=== PATIENT | female | born 1945 | race American Indian/Alaskan Native ===

== ENCOUNTER 2016-02-22 12:52 | Inpatient (IN) | payer MEDICARE ==
--- NOTE | 2016-02-22 14:03 | Emergency Department Report ---
Chief Complaint: Altered Mental Status Stated Complaint: CAN'T STAY AWAKE Time Seen by Provider: 02/22/16 13:57 - HPI History of Present Illness: Patient's son reports the patient with auditory and visual hallucinations with difficulty ambulating or standing. Patient was recently diagnosed with an UTI five days ago and unable to afford her prescriptive medications. - ROS Review of Systems: all other systems are unremarkable except for documentation in HPI - Exam Vital Signs: Vital Signs 02/22/16 13:11 Temperature 98.7 F Pulse Rate 102 H Respiratory 16 Rate Blood Pressure 137/79 O2 Sat by Pulse 96 Oximetry Physical Exam: Gen: obese, NAD Psych: flat affect, depressed MSE screening note: Focused history and physical exam performed. Due to findings the following was ordered: laboratory and radiology studies ordered ED Disposition for MSE Condition: Stable
--- NOTE | 2016-02-22 15:14 | XRay Report ---
CHEST 2 VIEWS: INDICATION: Altered mental status. COMPARISON: 02/18/2016 FINDINGS: Frontal and lateral chest radiographs demonstrate stable cardiomediastinal silhouette/mild cardiomegaly, mild aortic knob calcifications, left perihilar surgical clips and demineralized bones with thoracic spondylosis and advanced bilateral shoulder changes, including heterogeneous sclerosis and degenerative spurring of the right humeral head while absent left radial head noted from probable shoulder replacement hardware removal. Mild left base opacity/left lateral costophrenic angle blunting again noted, possibly pleural thickening or fluid. Lung markings again slightly prominent, more so on the right, possibly congestive versus chronic interstitial with somewhat similar appearance also noted on 09/10/2010 CXR. CONCLUSION: 1. Slight improved left basilar opacity. 2. Numerous other findings, as above, largely unchanged dating back to August 2010. Thank you for the opportunity to participate in this patient's care.
[2016-02-22 15:15] LABS: Basophils % (Auto) 0.4 % (0.0-1.8); Eosinophils % (Auto) 1.2 % (0.0-4.3); Hematocrit 39.4 % (30.3-42.9); Hemoglobin 12.5 gm/dl (10.1-14.3); Mean Corpuscular HGB Conc 32 % (30-34); Mean Corpuscular Hemoglobin 30 pg (28-32); Mean Corpuscular Volume 94 fl (79-97); Platelet Count 111 K/mm3 (140-440); Red Blood Count 4.17 M/mm3 (3.65-5.03); Red Cell Distribution Width 17.2 % (13.2-15.2); White Blood Count 4.3 K/mm3 (4.5-11.0)
[2016-02-22 15:26] LABS: INR 1.29 (0.87-1.13)
[2016-02-22 15:27] LABS: Partial Thromboplastin Time 29.7 Sec. (24.2-36.6)
[2016-02-22 15:36] LABS: Alanine Aminotransferase 7 units/L (7-56); Albumin 3.8 g/dL (3.9-5); Albumin/Globulin Ratio 1.3 %; Alkaline Phosphatase 112 units/L (35-129); BUN/Creatinine Ratio 17.14; Bilirubin,Total 1.2 mg/dL (0.1-1.2); Blood Urea Nitrogen 12 mg/dL (7-17); Carbon Dioxide 32 mmol/L (22-30); Chloride 102.7 mmol/L (98-107); Creatine Kinase 56 units/L (30-135); Glucose 164 mg/dL (65-100); Potassium 3.5 mmol/L (3.6-5.0); Sodium 147 mmol/L (137-145); Total Protein 6.8 g/dL (6.3-8.2)
[2016-02-22 15:44] LABS: Anion Gap 16 mmol/L
[2016-02-22 20:34] LABS: Bilirubin,Urine SM (Negative); Blood,Urine NEG (Negative); Ketones,Urine TR mg/dL (Negative); Leukocyte Esterase,Urine NEG (Negative); Mucus,Urine 1+ /HPF; Nitrite,Urine NEG (Negative); RBC,Urine < 1.0 /HPF (0.0-6.0)
--- NOTE | 2016-02-22 20:49 | Emergency Department Report ---
HPI - General Chief Complaint: Altered Mental Status Time Seen by Provider: 02/22/16 20:37 - HPI HPI: Room 3 The patient is a 70-year-old female presenting with a chief complaint of altered mental status. Patient was brought in by family for confusion. Family states patient has appeared confused for the last 5 days. Family states the patient has been hallucinating when asked him example family states the patient "sees her mother." The patient has not recognized her own daughter. Family states patient has been "talking out of her head." When asked the current year the patient states "2019." When asked what is bothering her the patient states "every little thing. Just irritation." Location: Mental state Duration: 5 days Quality: Confusion Severity: Moderate Modifying factors: [see above] Context: [see above] Mode of transportation: [not driving] ED Past Medical Hx - Past Medical History Previous Medical History?: Yes Hx Hypertension: Yes Hx Congestive Heart Failure: Yes Hx Diabetes: Yes Hx COPD: Yes - Surgical History Additional Surgical History: Patient states she has had abdominal surgery for a cancer whose origin she cannot recall - Family History Family history: no significant - Social History Smoking Status: Former Smoker (none times one year) Substance Use Type: None - Medications Home Medications: Home Medications Medication Instructions Recorded Confirmed Last Taken Type Aspirin [Adult Low Dose Aspirin EC] 81 mg PO DAILY 12/31/15 02/22/16 02/18/16 History Carvedilol [Coreg] 6.25 mg PO DAILY 12/31/15 02/22/16 02/18/16 History Dabigatran [Pradaxa] 150 mg PO BID 12/31/15 02/22/16 Unknown History Furosemide [Lasix] 20 mg PO QDAY 12/31/15 02/22/16 02/18/16 History ISOSORBIDE MONOnitrate [Imdur ER] 30 mg PO DAILY 12/31/15 02/22/16 02/18/16 History Lisinopril [Zestril] 20 mg PO QDAY 12/31/15 02/22/16 02/18/16 History Dabigatran [Pradaxa] 150 mg PO BID 02/18/16 02/22/16 02/18/16 History Digoxin [Lanoxin] 125 mcg PO QDAY 02/18/16 02/22/16 02/18/16 History Lisinopril [Zestril] 20 mg PO QDAY 02/18/16 02/22/16 Unknown History Metformin HCl [Fortamet ER] 1,000 mg PO QDAY 02/18/16 02/22/16 02/18/16 History Nitrofurantoin Esmeralda/M-Cryst 100 mg PO Q12HR #14 capsule 02/18/16 02/22/16 Unknown Rx [Macrobid CAP] Pantoprazole [Protonix] 40 mg PO QDAY 02/18/16 02/22/16 02/18/16 History Tiotropium [Spiriva] 18 mcg IH QDAY 02/18/16 02/22/16 02/18/16 History hydrALAZINE [Apresoline] 25 mg PO BID 02/18/16 02/22/16 02/18/16 History oxyCODONE /ACETAMINOPHEN [Percocet 1 tab PO Q6HR PRN #14 tablet 02/18/16 Unknown Rx 5/325] ED Review of Systems ROS: Stated complaint: CAN'T STAY AWAKE Other details as noted in HPI Comment: All other systems reviewed and negative Constitutional: denies: chills, fever Eyes: denies: eye pain, eye discharge, vision change ENT: denies: ear pain, throat pain Respiratory: denies: cough, shortness of breath, wheezing Cardiovascular: denies: chest pain, palpitations Endocrine: no symptoms reported Gastrointestinal: denies: abdominal pain, nausea, diarrhea Genitourinary: denies: urgency, dysuria, discharge Musculoskeletal: denies: back pain, joint swelling, arthralgia Skin: denies: rash, lesions Neurological: confusion Psychiatric: visual hallucinations Hematological/Lymphatic: denies: easy bleeding, easy bruising Physical Exam - Physical Exam Vital Signs: Vital Signs 02/22/16 02/22/16 02/22/16 13:11 19:25 19:26 Temperature 98.7 F Pulse Rate 102 H 121 H 111 H Respiratory 16 29 H 16 Rate Blood Pressure 137/79 O2 Sat by Pulse 96 83 L 91 Oximetry 02/22/16 02/22/16 02/22/16 19:28 19:30 19:32 Temperature Pulse Rate 108 H 100 H 103 H Respiratory 22 18 16 Rate Blood Pressure 167/101 183/93 183/93 O2 Sat by Pulse 93 98 99 Oximetry 1202/22/16 02/22/16 19:34 19:46 20:00 Temperature Pulse Rate 99 H 87 100 H Respiratory 17 21 15 Rate Blood Pressure 183/93 183/85 183/85 O2 Sat by Pulse 99 99 90 Oximetry 02/22/16 20:16 Temperature Pulse Rate 93 H Respiratory 19 Rate Blood Pressure 159/90 O2 Sat by Pulse 100 Oximetry Physical Exam: GENERAL: The patient is well-developed well-nourished female lying on stretcher not appearing to be in acute distress. [] HEENT: Normocephalic. Atraumatic. Extraocular motions are intact. Patient has moist mucous membranes. NECK: Supple. No meningitic signs are noted. Regular midline CHEST/LUNGS: Clear to auscultation. There is no respiratory distress noted. HEART/CARDIOVASCULAR: Regular. There is no tachycardia. There is no gallop rub or murmur. ABDOMEN: Abdomen is soft, nontender. Patient has normal bowel sounds. There is no abdominal distention. SKIN: There is no rash. There is no edema. There is no diaphoresis. NEURO: The patient is awake but not oriented to time. The patient is cooperative. The patient has no focal neurologic deficits. The patient has normal speech. Cranial nerves II through XII grossly intact, real estate coordinator equal bilaterally MUSCULOSKELETAL: There is no evidence of acute injury. ED Course Vital Signs 02/22/16 02/22/16 02/22/16 13:11 19:25 19:26 Temperature 98.7 F Pulse Rate 102 H 121 H 111 H Respiratory 16 29 H 16 Rate Blood Pressure 137/79 O2 Sat by Pulse 96 83 L 91 Oximetry 02/22/16 02/22/16 02/22/16 19:28 19:30 19:32 Temperature Pulse Rate 108 H 100 H 103 H Respiratory 22 18 16 Rate Blood Pressure 167/101 183/93 183/93 O2 Sat by Pulse 93 98 99 Oximetry 02/22/16 02/22/16 02/22/16 19:34 19:46 20:00 Temperature Pulse Rate 99 H 87 100 H Respiratory 17 21 15 Rate Blood Pressure 183/93 183/85 183/85 O2 Sat by Pulse 99 99 90 Oximetry 02/22/16 20:16 Temperature Pulse Rate 93 H Respiratory 19 Rate Blood Pressure 159/90 O2 Sat by Pulse 100 Oximetry ED Medical Decision Making - Lab Data Result diagrams: 02/22/16 14:52 02/22/16 14:52 Laboratory Tests 02/22/16 02/22/16 02/22/16 14:52 14:52 14:52 WBC 4.3 L RBC 4.17 Hgb 12.5 Hct 39.4 MCV 94 MCH 30 MCHC 32 RDW 17.2 H Plt Count 111 L Lymph % (Auto) 21.1 Esmeralda % (Auto) 10.9 H Eos % (Auto) 1.2 Baso % (Auto) 0.4 Lymph # 0.9 L Esmeralda # 0.5 Eos # 0.1 Baso # 0.0 Seg Neutrophils % 66.4 Seg Neutrophils # 2.9 PT 16.0 H INR 1.29 H APTT 29.7 Sodium 147 H Potassium 3.5 L Chloride 102.7 Carbon Dioxide 32 H Anion Gap 16 BUN 12 Creatinine 0.7 Estimated GFR > 60 BUN/Creatinine Ratio 17.14 Glucose 164 H Lactic Acid Calcium 9.0 Total Bilirubin 1.2 AST 15 ALT 7 Alkaline Phosphatase 112 Total Creatine Kinase 56 Troponin T < 0.010 Total Protein 6.8 Albumin 3.8 L Albumin/Globulin Ratio 1.3 Urine Color Urine Turbidity Urine pH Ur Specific [place] Urine Protein Urine Glucose (UA) Urine Ketones Urine Blood Urine Nitrite Urine Bilirubin Urine Ictotest Urine Urobilinogen Ur Leukocyte Esterase Urine WBC (Auto) Urine RBC (Auto) U Epithel Cells (Auto) Urine Mucus 02/22/16 02/22/16 14:52 20:00 WBC RBC Hgb Hct MCV MCH MCHC RDW Plt Count Lymph % (Auto) Esmeralda % (Auto) Eos % (Auto) Baso % (Auto) Lymph # Esmeralda # Eos # Baso # Seg Neutrophils % Seg Neutrophils # PT INR APTT Sodium Potassium Chloride Carbon Dioxide Anion Gap BUN Creatinine Estimated GFR BUN/Creatinine Ratio Glucose Lactic Acid 1.6 Calcium Total Bilirubin AST ALT Alkaline Phosphatase Total Creatine Kinase Troponin T Total Protein Albumin Albumin/Globulin Ratio Urine Color [place] Urine Turbidity Clear Urine pH 5.0 Ur Specific [place] 1.030 Urine Protein 100 mg/dl Urine Glucose (UA) Neg Urine Ketones Tr Urine Blood Neg Urine Nitrite Neg Urine Bilirubin Sm Urine Ictotest Positive Urine Urobilinogen 4.0 Ur Leukocyte Esterase Neg Urine WBC (Auto) 1.0 Urine RBC (Auto) < 1.0 U Epithel Cells (Auto) 8.0 Urine Mucus 1+ - EKG Data -: EKG Interpreted by Me Rate: tachycardia (107 bpm) - EKG Data When compared to previous EKG there are: no significant change - Radiology Data Radiology results: report reviewed (CT head), image reviewed (chest x-ray, CT head, CT Chest) interpreted by me: Chest [id number]. No pneumothorax CT head (read by radiologist)-there are chronic changes. There is no acute intracranial abnormality CT chest (read by radiologist)-the heart is enlarged. There is a small pericardial effusion. There is no pulmonary embolism. There is calcified plaque in the thoracic aorta. There is no aneurysm or dissection. There is mild pulmonary edema. There is no consolidation. There is a small right pleural effusion. There are no pneumothoraces. There is anasarca and ascites. Further evidence of heart failure. - Differential Diagnosis AMS, ICH, CVA Critical care attestation.: If time is entered above; I have spent that time in minutes in the direct care of this critically ill patient, excluding procedure time. ED Disposition Clinical Impression: Altered mental status, Hypoxia, CHF (congestive heart failure) Disposition: OP ADMITTED IP TO THIS HOSP Is pt being admited?: Yes Does the pt Need Aspirin: Yes Condition: Fair Referrals: PRIMARY CARE, [Primary Care Provider] - 3-5 Days Time of Disposition: 01:35 (hospitalist paged)
[2016-02-22 22:09] LABS: ISTAT Base Excess 10; ISTAT HCO3 35.3; ISTAT PCO2 58.1 (35-45); ISTAT PH 7.391 (7.35-7.45); ISTAT PO2 39 (80-105); ISTAT SO2 72; ISTAT TCO2 37
--- NOTE | 2016-02-22 22:36 | Cat Scan Report ---
FINAL REPORT PROCEDURE: CT HEAD/BRAIN WO CON TECHNIQUE: Computerized tomography of the head was performed without contrast material. HISTORY: altered mental status COMPARISON: No prior studies are available for comparison. FINDINGS: Skull and scalp: Normal. Paranasal sinuses: Normal. Ventricles and subarachnoid spaces: There is moderate central and cortical atrophy. There is no hydrocephalus.. Cerebrum: No evidence of hemorrhage, acute infarction or mass. There is an old lacunar infarct defect in the left thalamus. There is chronic periventricular deep white matter ischemic gliosis. Cerebellum and brainstem: No evidence of hemorrhage, acute infarction or mass. Vasculature: Normal. Comments: None. IMPRESSION: There are chronic changes as described. There is no acute intracranial abnormality.
[2016-02-22] MEDS ORDERED: NACL ONE (23:56)
--- NOTE | 2016-02-23 01:19 | Cat Scan Report ---
FINAL REPORT PROCEDURE: CT ANGIO CHEST TECHNIQUE: Computerized axial tomographic angiography of the chest and pulmonary arteries was performed after the IV injection of iodinated nonionic contrast. The image data was postprocessed using maximum intensity projection (MIP) and 2-dimensional multiplanar reformatted (MPR) techniques. The examination is specifically tailored to the evaluation of the pulmonary arteries per clinical request. HISTORY: Short of breath 786.09, chest pain 786.50, hypoxia, elevated d-dimer COMPARISON: No prior studies are available for comparison. FINDINGS: Heart and pericardium: The heart is enlarged. There is a small pericardial effusion.. Thoracic aorta: There is calcified plaque in the thoracic aorta. There is no aneurysm or dissection.. Pulmonary vasculature: Normal. No pulmonary emboli. Lymph nodes: No enlarged thoracic lymph nodes. Lungs: There is suboptimal lung volumes. The there is mild pulmonary edema. There is no consolidation.. Pleural space: There is a small right pleural effusion. There are no pneumothoraces.. Musculoskeletal structures: No significant abnormality. Upper abdominal structures: There is anasarca and ascites. Further evidence of heart failure.. IMPRESSION: The heart is enlarged. There is a small pericardial effusion.. There is no pulmonary embolism. There is calcified plaque in the thoracic aorta. There is no aneurysm or dissection.. is suboptimal lung volumes. The there is mild pulmonary edema. There is no consolidation.. There is a small right pleural effusion. There are no pneumothoraces.. There is anasarca and ascites. Further evidence of heart failure.. .
--- NOTE | 2016-02-23 01:30 | Admit Criteria Form ---
Admission Criteria Documentation: MENTAL STATUS CHANGE Clinical Indications for Inpatient Care (Place 'X' for any and all applicable criteria): Ongoing inpatient care may be needed for ANY ONE of the following(1)(2)(3)(5)(6) : [ X]I. Suspected serious etiology (eg, medical disorder, ANIMAL HUSBANDRY MANAGER event) of mental status change [ ]II. Danger to self or others not manageable at lower level of care [ ]III. Grave disability (eg, inability to perform self care necessary at lower level of care) [ ]IV. Agitation or inappropriate behavior interfering with care for primary condition (eg, attempting to discontinue lines or drains prematurely, unable to cooperate with respiratory care) [ ]V. Delirium [A] [D][E] as described by ANY ONE of the following(26): [ ]a) Delirium due to alcohol or sedative [F] withdrawal [ ]b) Delirium of uncertain etiology that has not responded to appropriate empiric treatment [ ]c) Delirium that prevents performance of a life-sustaining function (eg, feeding or hydrating oneself) [ ]. General contraindications and/or Inappropriate clinical situations for Observational Care in patients with Mental Status Change, when ANY ONE of the following is required: [ ]a) Prediction of prolongation of LOS based on ANY ONE of the following may be considered as a contraindication for observational care 2, 3, 4, 5, 6, 7, 8, 9, 10, 11 [ ]i) Age > 65 yrs. [ ]ii) Patient arriving by ambulance [ ]iii) Patient with high acuity [ ]iv) Patient requiring vital sign monitoring [ ]v) Patient on IV medication [ ]b) Systolic blood pressures 180mmHg 3,12 [ ]c) Patient with altered mental status including delirium and other alteration of consciousness, (3) [ ]d) Patient whose discharge disposition will be to a senior living home or rehabilitation home should not be managed in Emergency Department Observation Unit. CMS rule requires 3 days hospital stay before such placement.3,13 [ ]e) Patient with failure to thrive due to broad array of etiologies 3,16,17 [ ]f) Inability to ambulate 3,14 Extended stay beyond goal length of stay for the primary condition may be needed until ALL of the following are present(3)(5): [ ]a) Underlying medical etiology of mental status change is absent, or has been established and adequately treated [ ]b) Danger to self or others is absent or manageable at lower level of care. [ ]c) Behavior crisis management, including physical or chemical restraints, is not required or available at lower level of car [ ]d) Substance or alcohol withdrawal is absent or manageable at lower level of care. [ ]e) Behavioral symptoms (eg, agitation, somnolence, inappropriate behavior) are absent, or are manageable at lower level of care. The original [email or web address] content created by [facility] has been revised. The portions of the content which have been revised are identified through the use of italic text or in bold, and [facility] has neither reviewed nor approved the modified material. All other unmodified content is copyright [email or web address]. Please see references footnoted in the original [facility] edition 2016 Admission Criteria Met: Yes
[2016-02-23] MEDS ORDERED: CATAPRES PO ONE ×2 (01:31)
[2016-02-23] MEDS ORDERED: LASIX IV ONE (01:32)
[2016-02-23] MEDS ORDERED: ASPIRIN PO ONE (01:36)
[2016-02-23] MEDS ORDERED: ZOFRAN IV PRN (01:58)
[2016-02-23] MEDS ORDERED: TYLENOL PO PRN (01:58)
[2016-02-23] MEDS ORDERED: D50W (25GM) IV PRN (02:01)
--- NOTE | 2016-02-23 02:12 | History and Physical Report ---
History of Present Illness Date of examination: 02/23/16 Chief complaint: Can't stay awake History of present illness: Patient is 70-year-old woman with a history of type 2 diabetes mellitus, hypertension, COPD, CHF and morbid obesity BMI 54.9 who presents with altered mental status and can't stay awake within the last couple days there's reports of hallucination. History from the chart as patient is sleepy and not answering all questions. Past History Past Medical History: other (as HPI) Past Surgical History: Other ([facility]) Social history: other (has been answered) Family history: no significant family history Medications and Allergies Allergies Allergy/AdvReac Type Severity Reaction Status Date / Time Penicillins Allergy Unknown Verified 12/31/15 15:50 Home Medications Medication Instructions Recorded Confirmed Last Taken Type Aspirin [Adult Low Dose Aspirin EC] 81 mg PO DAILY 12/31/15 02/22/16 02/18/16 History Carvedilol [Coreg] 6.25 mg PO DAILY 12/31/15 02/22/16 02/18/16 History Dabigatran [Pradaxa] 150 mg PO BID 12/31/15 02/22/16 Unknown History Furosemide [Lasix] 20 mg PO QDAY 12/31/15 02/22/16 02/18/16 History ISOSORBIDE MONOnitrate [Imdur ER] 30 mg PO DAILY 12/31/15 02/22/16 02/18/16 History Lisinopril [Zestril] 20 mg PO QDAY 12/31/15 02/22/16 02/18/16 History Dabigatran [Pradaxa] 150 mg PO BID 02/18/16 02/22/16 02/18/16 History Digoxin [Lanoxin] 125 mcg PO QDAY 02/18/16 02/22/16 02/18/16 History Lisinopril [Zestril] 20 mg PO QDAY 02/18/16 02/22/16 Unknown History Metformin HCl [Fortamet ER] 1,000 mg PO QDAY 02/18/16 02/22/16 02/18/16 History Nitrofurantoin [place]/M-Cryst 100 mg PO Q12HR #14 capsule 02/18/16 02/22/16 Unknown Rx [Macrobid CAP] Pantoprazole [Protonix] 40 mg PO QDAY 02/18/16 02/22/16 02/18/16 History Tiotropium [Spiriva] 18 mcg IH QDAY 02/18/16 02/22/16 02/18/16 History hydrALAZINE [Apresoline] 25 mg PO BID 02/18/16 02/22/16 02/18/16 History oxyCODONE /ACETAMINOPHEN [Percocet 1 tab PO Q6HR PRN #14 tablet 02/18/16 Unknown Rx 5/325] Active Meds: Active Medications Acetaminophen (Tylenol) 650 mg PO Q6H PRN PRN Reason: Non Cardiac Pain or Temp>100.5 Aspirin (Halfprin Ec) 81 mg PO DAILY [facility] Carvedilol (Coreg) 6.25 mg PO DAILY [facility] Dabigatran (Pradaxa) 150 mg PO BID [facility] Dextrose (D50w (25gm)) 50 ml IV PRN PRN PRN Reason: Hypoglycemia Digoxin (Lanoxin) 0.125 mg PO QDAY [facility] Furosemide (Lasix) 20 mg IV 0600,1800 [facility] Hydralazine HCl (Apresoline) 25 mg PO BID [facility] Hydralazine HCl (Apresoline) 10 mg IV Q4HR PRN PRN Reason: Blood Pressure Levofloxacin/Dextrose (Levaquin 500mg/100ml) 100 mls @ 100 mls/hr IV Q24HR JUSTINO PRN Reason: Protocol Insulin Aspart (Novolog) 0 units SUB-Q ACHS JUSTINO PRN Reason: Protocol Lisinopril (Zestril) 20 mg PO QDAY [facility] Miscellaneous Medication (Metformin Hcl [Fortamet Er]) 1,000 mg PO QDAY [facility] Ondansetron HCl (Zofran) 4 mg IV Q4H PRN PRN Reason: Nausea And Vomiting Oxycodone/Acetaminophen (Percocet 5/325) 1 tab PO Q6HR PRN PRN Reason: Pain Pantoprazole Sodium (Protonix) 40 mg PO QDAY [facility] Potassium Chloride (K-Dur) 40 meq PO ONCE ONE Stop: 02/23/16 02:01 Tiotropium [place] (Spiriva) puff IH QDAY [facility] Review of Systems ROS unobtainable: due to mental status Exam - Physical Exam Narrative exam: GEN: WDWN, morbidly obesity BMI 55, NAD, sleepy but easily aroused, ORIENTATED 1 HEENT: NCAT, PERRL, EOMI, OP CLEAR NECK: SUPPLE, NO THYROMEGALY, + JVD, NO LAD CVS: Irregularly irregular, NORMAL S1S2 LUNGS/CHEST: Bibasilar crackles, NORMAL CHEST EXPANSION B, GOOD AIR ENTRY B ABD: SOFT, NTND, GBS, NO REBOUND OR GUARDING EXT/SKIN: leg SIGNIFICANT EDEMA MSK: Spontaneous movement X 4 EXTREMITIES NEURO: CN 2-12 GROSSLY INTACT, doesn't follow commands PSY: CALM - Constitutional Vitals: Temp Pulse Resp BP Pulse Ox 98.7 F 98 H 17 213/124 99 02/22/16 13:11 02/23/16 01:41 02/23/16 01:30 02/23/16 01:41 02/23/16 00:46 Results - Labs CBC & Chem 7: 02/22/16 14:52 02/22/16 14:52 Labs: Abnormal lab results 02/22/16 02/22/16 02/22/16 Range/Units 14:52 14:52 14:52 WBC 4.3 L (4.5-11.0) K/mm3 RDW 17.2 H (13.2-15.2) % Plt Count 111 L (140-440) K/mm3 [place] % (Auto) 10.9 H (0.0-7.3) % Lymph # 0.9 L (1.2-5.4) K/mm3 PT 16.0 H (12.2-14.9) Sec. INR 1.29 H (0.87-1.13) D-Dimer (0-234) ng/mlDDU POC ABG pCO2 (35-45) POC ABG pO2 (80-105) Sodium 147 H (137-145) mmol/L Potassium 3.5 L (3.6-5.0) mmol/L Carbon Dioxide 32 H (22-30) mmol/L Glucose 164 H (65-100) mg/dL Albumin 3.8 L (3.9-5) g/dL 02/22/16 02/22/16 Range/Units 15:00 22:01 WBC (4.5-11.0) K/mm3 RDW (13.2-15.2) % Plt Count (140-440) K/mm3 [place] % (Auto) (0.0-7.3) % Lymph # (1.2-5.4) K/mm3 PT (12.2-14.9) Sec. INR (0.87-1.13) D-Dimer 445.96 H (0-234) ng/mlDDU POC ABG pCO2 58.1 H (35-45) POC ABG pO2 39 L (80-105) Sodium (137-145) mmol/L Potassium (3.6-5.0) mmol/L Carbon Dioxide (22-30) mmol/L Glucose (65-100) mg/dL Albumin (3.9-5) g/dL - Imaging and Cardiology EKG: image reviewed CT scan - chest: report reviewed CT Scan - head: report reviewed Assessment and Plan Patient is 70-year-old woman with a history of type 2 diabetes mellitus, atrial fibrillation on pradaxa, hypertension, COPD, CHF and morbid obesity BMI 55 who presents with altered mental status and can't stay awake within the last couple days there's reports of hallucination. History from the chart as patient is sleepy and not answering all questions. CTA of the chest 02/23/2016: The heart is enlarged. A small pericardial effusion. There is no pulmonary embolism. This plaque in the thoracic aorta. There is no aneurysm dissection. There is suboptimal lung volumes. There is mild pulmonary edema. There is no consolidation. There is a small right pleural effusion, no pneumothorax. There is anasarca and ascites, further evidence of heart failure. Pulse oximetry was found to be 83% on room air. Patient was seen on and diagnosed with UTI. 1. Acute hypoxic respiratory failure: Treatment oxygen and heart failure 2. Acute on chronic suspected diastolic heart failure: Treat with IV Lasix, no prior echocardiogram, will order 3. Accelerated hypertension: IV when necessary hydralazine 4. Hypokalemia: Replace and recheck in a.m. 5. Atrial fibrillation: Continue home medication 6. Type 2 diabetes mellitus: Add sliding scale 7. Sirs with suspected UTI with sepsis poorly treated with Macrobid: Check urine culture, treat with IV Levaquin, patient allergic to penicillin 8. DVT prophylaxis: SCDs and Pradaxa Full code Disposition: Inpatient care The high probability of a clinically significant, sudden or life threatening deterioration of the [neurologic,cardiac] system(s) required my full and direct attention, intervention and personal management. The aggregate critical care time was [ 34 ] minutes. This time is in addition to time spent performing reported procedures but includes the following: [x] Data Review and interpretation [x] Patient assessment and monitoring of vital signs [x] Documentation [x] Medication orders and management
[2016-02-23] MEDS ORDERED: K-DUR PO ONE (03:00)
[2016-02-23] MEDS: LASIX IV SCH ×2 (05:17→18:10)
[2016-02-23 07:54] LABS: Creatine Kinase MB 1.3 ng/mL (0.0-4.0)
[2016-02-23 07:58] LABS: Creatine Kinase 53 units/L (30-135)
[2016-02-23] MEDS ORDERED: LASIX PO SCH (10:00)
[2016-02-23] MEDS: SPIRIVA IH SCH (10:57)
[2016-02-23] MEDS: HALFPRIN EC PO SCH (12:56)
[2016-02-23] MEDS: APRESOLINE PO SCH ×2 (12:56→21:46)
[2016-02-23] MEDS: PROTONIX PO SCH (12:56)
[2016-02-23] MEDS: ZESTRIL PO SCH (12:56)
[2016-02-23] MEDS: COREG PO SCH (12:57)
[2016-02-23] MEDS: PRADAXA PO SCH ×2 (12:59→21:46)
[2016-02-23] MEDS: NOVOLOG SUB-Q SCH ×2 (13:00→22:57)
[2016-02-23] MEDS: LEVAQUIN 500MG/100ML 100 ML IV SCH (13:02)
[2016-02-23 13:31] LABS: Creatine Kinase MB 1.3 ng/mL (0.0-4.0)
[2016-02-23 13:32] LABS: Creatine Kinase 52 units/L (30-135)
--- NOTE | 2016-02-23 13:46 | Progress Note ---
Assessment and Plan Assessment and plan: Acute hypoxic respiratory failure: * Treatment with supplemental oxygen, nebulizer breathing treatment * Treat underlying cause diastolic heart failure Acute on chronic suspected diastolic heart failure: * Treat with IV Lasix, 2-D echo showed preserved ejection fraction and diastolic dysfunction * We'll consult cardiology Accelerated hypertension: * IV when necessary hydralazine * Continue current meds and a chest dictations as needed Hypokalemia: * Replaced and continue to monitor Atrial fibrillation: * Continue home medication and anticoagulation Type 2 diabetes mellitus: * Continue ADA diet and sliding scale Sirs with suspected UTI with sepsis poorly treated with Macrobid: * Follow urine culture, treat with IV Levaquin, patient allergic to penicillin DVT prophylaxis: * SCDs and Pradaxa History Interval history: Patient seen and examined. Medical records and medication list reviewed. No acute event overnight noted by the RN. Patient continued to complain of difficulty breathing with minimal exertion. Patient is tolerating diet. Discussed plan of care at bedside with patient. Hospitalist Physical - Physical exam Narrative exam: GEN: WDWN, morbidly obesity BMI 55, NAD, sleepy but easily aroused, ORIENTATED 1 HEENT: NCAT, PERRL, EOMI, OP CLEAR NECK: SUPPLE, NO THYROMEGALY, + JVD, NO LAD CVS: Irregularly irregular, NORMAL S1S2 LUNGS/CHEST: Bibasilar crackles, NORMAL CHEST EXPANSION B, GOOD AIR ENTRY B ABD: SOFT, NTND, GBS, NO REBOUND OR GUARDING EXT/SKIN: leg SIGNIFICANT EDEMA MSK: Spontaneous movement X 4 EXTREMITIES NEURO: CN 2-12 GROSSLY INTACT, doesn't follow commands PSY: CALM - Constitutional Vitals: Temp Pulse Resp BP Pulse Ox 98.4 F 82 20 191/52 98 02/23/16 07:40 02/23/16 12:57 02/23/16 07:40 02/23/16 12:57 02/23/16 07:40 Results - Labs CBC & Chem 7: 02/22/16 14:52 02/22/16 14:52 Labs: Laboratory Last Values WBC 4.3 K/mm3 (4.5-11.0) L 02/22/16 14:52 RBC 4.17 M/mm3 (3.65-5.03) 02/22/16 14:52 Hgb 12.5 gm/dl (10.1-14.3) 02/22/16 14:52 Hct 39.4 % (30.3-42.9) 02/22/16 14:52 MCV 94 fl (79-97) 02/22/16 14:52 MCH 30 pg (28-32) 02/22/16 14:52 MCHC 32 % (30-34) 02/22/16 14:52 RDW 17.2 % (13.2-15.2) H 02/22/16 14:52 Plt Count 111 K/mm3 (140-440) L 02/22/16 14:52 Lymph % (Auto) 21.1 % (13.4-35.0) 02/22/16 14:52 [place] % (Auto) 10.9 % (0.0-7.3) H 02/22/16 14:52 Eos % (Auto) 1.2 % (0.0-4.3) 02/22/16 14:52 Baso % (Auto) 0.4 % (0.0-1.8) 02/22/16 14:52 Lymph # 0.9 K/mm3 (1.2-5.4) L 02/22/16 14:52 [place] # 0.5 K/mm3 (0.0-0.8) 02/22/16 14:52 Eos # 0.1 K/mm3 (0.0-0.4) 02/22/16 14:52 Baso # 0.0 K/mm3 (0.0-0.1) 02/22/16 14:52 Seg Neutrophils % 66.4 % (40.0-70.0) 02/22/16 14:52 Seg Neutrophils # 2.9 K/mm3 (1.8-7.7) 02/22/16 14:52 PT 16.0 Sec. (12.2-14.9) H 02/22/16 14:52 INR 1.29 (0.87-1.13) H 02/22/16 14:52 APTT 29.7 Sec. (24.2-36.6) 02/22/16 14:52 D-Dimer 445.96 ng/mlDDU (0-234) H 02/22/16 15:00 POC ABG pH 7.391 (7.35-7.45) 02/22/16 22:01 POC ABG pCO2 58.1 (35-45) H 02/22/16 22:01 POC ABG pO2 39 (80-105) L 02/22/16 22:01 POC ABG HCO3 35.3 02/22/16 22:01 POC ABG Total CO2 37 02/22/16 22:01 POC ABG O2 Sat 72 02/22/16 22:01 POC ABG Base Excess 10 02/22/16 22:01 FiO2 28 % 02/22/16 22:01 Sodium 147 mmol/L (137-145) H 02/22/16 14:52 Potassium 3.5 mmol/L (3.6-5.0) L 02/22/16 14:52 Chloride 102.7 mmol/L (98-107) 02/22/16 14:52 Carbon Dioxide 32 mmol/L (22-30) H 02/22/16 14:52 Anion Gap 16 mmol/L 02/22/16 14:52 BUN 12 mg/dL (7-17) 02/22/16 14:52 Creatinine 0.7 mg/dL (0.7-1.2) 02/22/16 14:52 Estimated GFR > 60 ml/min 02/22/16 14:52 BUN/Creatinine Ratio 17.14 % 02/22/16 14:52 Glucose 164 mg/dL (65-100) H 02/22/16 14:52 Lactic Acid 1.6 mmol/L (0.7-2.0) 02/22/16 14:52 Calcium 9.0 mg/dL (8.4-10.2) 02/22/16 14:52 Total Bilirubin 1.2 mg/dL (0.1-1.2) 02/22/16 14:52 AST 15 units/L (5-40) 02/22/16 14:52 ALT 7 units/L (7-56) 02/22/16 14:52 Alkaline Phosphatase 112 units/L (35-129) 02/22/16 14:52 Total Creatine Kinase 52 units/L (30-135) 02/23/16 12:49 CK-MB (CK-2) 1.3 ng/mL (0.0-4.0) 02/23/16 12:49 CK-MB (CK-2) Rel Index 2.5 (0-4) 02/23/16 12:49 Troponin T < 0.010 ng/mL (0.00-0.029) 02/23/16 12:49 Total Protein 6.8 g/dL (6.3-8.2) 02/22/16 14:52 Albumin 3.8 g/dL (3.9-5) L 02/22/16 14:52 Albumin/Globulin Ratio 1.3 % 02/22/16 14:52 Urine Color [place] (Yellow) 02/22/16 20:00 Urine Turbidity Clear (Clear) 02/22/16 20:00 Urine pH 5.0 (5.0-7.0) 02/22/16 20:00 Ur Specific [place] 1.030 (1.003-1.030) 02/22/16 20:00 Urine Protein 100 mg/dl mg/dL (Negative) 02/22/16 20:00 Urine Glucose (UA) Neg mg/dL (Negative) 02/22/16 20:00 Urine Ketones Tr mg/dL (Negative) 02/22/16 20:00 Urine Blood Neg (Negative) 02/22/16 20:00 Urine Nitrite Neg (Negative) 02/22/16 20:00 Urine Bilirubin Sm (Negative) 02/22/16 20:00 Urine Ictotest Positive (Negative) 02/22/16 20:00 Urine Urobilinogen 4.0 mg/dL (<2.0) 02/22/16 20:00 Ur Leukocyte Esterase Neg (Negative) 02/22/16 20:00 Urine WBC (Auto) 1.0 /HPF (0.0-6.0) 02/22/16 20:00 Urine RBC (Auto) < 1.0 /HPF (0.0-6.0) 02/22/16 20:00 U Epithel Cells (Auto) 8.0 /HPF (0-13.0) 02/22/16 20:00 Urine Mucus 1+ /HPF 02/22/16 20:00
--- NOTE | 2016-02-23 15:29 | Echocardiography Report ---
Transthoracic Echocardiogram Indication: CHF BP: 164/59 Conclusions *Moderate concentric left ventricular hypertrophy is observed. *The left ventricular chamber size is normal. *The estimated ejection fraction is 55-60%. *The left ventricular diastolic filling pattern is restrictive. *The left atrium is mildly dilated. *TAPSE is low at 1.17 suggesting (R) ventricular dysfunction. *The aortic valve leaflets are mildly thickened. *The right atrium is moderately dilated. *The mitral valve leaflets are mildly thickened. *There is mild mitral regurgitation. *There is moderate tricuspid regurgitation. *The right ventricular systolic pressure is calculated at 86 mmHg. *There is evidence of severe pulmonary hypertension. *There is a minimial pericardial effusion. *The inferior vena cava is dilated. *There is no change in the dimension of the inferior vena cava with respiration consistent with markedly increased right atrial pressure. Findings Left Ventricle: The left ventricular chamber size is normal. Moderate concentric left ventricular hypertrophy is observed. Global left ventricular wall motion and contractility are within normal limits. Global left ventricular systolic function is normal. The estimated ejection fraction is 55-60%. Abnormal left ventricular diastolic function is observed. The left ventricular diastolic filling pattern is restrictive. Left Atrium: The left atrium is mildly dilated. Right Ventricle: The right ventricular cavity size is normal. The right ventricular global systolic function is normal. Right Atrium: The right atrium is moderately dilated. The interatrial septum appears normal. Aortic Valve: The aortic valve leaflets are mildly thickened. Mild aortic leaflet calcification is visualized. There is no evidence of aortic regurgitation. There is no evidence of aortic stenosis. Mitral Valve: The mitral valve leaflets appear normal. The mitral valve leaflets are mildly thickened. Mild mitral leaflet calcification is visualized. There is mild mitral regurgitation. There is no evidence of mitral stenosis. Tricuspid Valve: The tricuspid valve leaflets are normal. There is moderate tricuspid regurgitation. The right ventricular systolic pressure is calculated at 86 mmHg. There is evidence of severe pulmonary hypertension. There is no tricuspid stenosis. Pulmonic Valve: The pulmonic valve appears normal. There is trace pulmonic regurgitation. There is no pulmonic stenosis. Pericardium: There is a minimial pericardial effusion. Aorta: There is no dilatation of the ascending aorta. There is no dilatation of the aortic root. Venous: The inferior vena cava is dilated. There is no change in the dimension of the inferior vena cava with respiration consistent with markedly increased right atrial pressure. Measurements Chambers MM Name Value Normal Range Ao root diameter (MM) 2.5 cm (2 - 3.7) LA dimension (AP) MM 4.3 cm (1.9 - 4) LA:Ao ratio (MM) 1.72 ratio - AV cusp separation (MM) 1.4 cm (1.5 - 2.6) Chambers 2D Name Value Normal Range RVIDd (AP) 2D 3.54 cm (0.9 - 2.6) IVSd (2D) 1.62 cm (0.6 - 1.1) LVPWd (2D) 1.62 cm (0.6 - 1.1) IVS:LVPW ratio (2D) 1 ratio - LVIDd (2D) 4.39 cm (3.7 - 5.6) LVIDs (2D) 3.17 cm (2 - 3.8) LV FS (Teichholz) (2D) 27.8 % - LV FS (cube) (2D) 27.8 % - EF Teichholz (2D) 54.1 % - LA dimension (AP) 2D 4.8 cm (1.9 - 4) Volumes/Mass Name Value Normal Range LA ESV SP 4CH (MOD) 61 ml - LA ESV SP 2CH (MOD) 83 ml - LA ESV BP (MOD) 72 ml - LA ESV BP (MOD) index 31.9 ml/m2 - LV EDV SP 4CH (MOD) 52 ml - Diastolic/Systolic Function Name Value Normal Range MV E-wave Vmax 0.75 m/sec - MV deceleration time 169 msec - LV septal e' Vmax 0.08 m/sec - LV lateral e' Vmax 0.1 m/sec - LV E:e' septal ratio 9 ratio - LV E:e' lateral ratio 7.6 ratio - Aortic Valve Name Value Normal Range AV VTI 31.6 cm - AV mean gradient 6 mmHg - LVOT diameter 2 cm - LVOT VTI 15.3 cm - LVOT mean gradient 2 mmHg - SV LVOT 48 ml - TODD (continuity VTI) 1.52 cm2 - Mitral Valve Name Value Normal Range MV PHT 51 msec - MR Vmax 4.07 m/sec - MVA (PHT) 4.31 cm2 - Tricuspid Valve Name Value Normal Range TR Vmax 4.22 m/sec - TR peak gradient 71 mmHg - RAP 15 mmHg - RVSP 86 mmHg - Pulmonic Valve/Qp:Qs Name Value Normal Range PV Vmax 0.94 m/sec - PV peak gradient 4 mmHg - IL end-diastolic Vmax 1.79 m/sec - PV acceleration time 109 msec -
[2016-02-23] MEDS: LANOXIN PO SCH (18:08)
[2016-02-23] MEDS: GLUCOPHAGE XR PO SCH (18:13)
[2016-02-23 18:21] LABS: Creatine Kinase MB 1.1 ng/mL (0.0-4.0)
[2016-02-23] MEDS ORDERED: HEPARIN SUB-Q SCH (22:00)
[2016-02-24] MEDS: LASIX IV SCH ×2 (06:07→17:18)
[2016-02-24] MEDS: NOVOLOG SUB-Q SCH ×5 (07:48→22:03)
[2016-02-24] MEDS: PRADAXA PO SCH ×2 (10:55→22:02)
[2016-02-24] MEDS: ZESTRIL PO SCH (10:55)
[2016-02-24] MEDS: GLUCOPHAGE XR PO SCH (10:55)
[2016-02-24] MEDS: COREG PO SCH (10:55)
[2016-02-24] MEDS: HALFPRIN EC PO SCH (10:55)
[2016-02-24] MEDS: APRESOLINE PO SCH ×2 (10:55→22:02)
[2016-02-24] MEDS: LEVAQUIN 500MG/100ML 100 ML IV SCH (10:56)
[2016-02-24] MEDS: PROTONIX PO SCH (10:56)
[2016-02-24] MEDS: SPIRIVA IH SCH (10:59)
[2016-02-24 11:43] LABS: Anion Gap 15 mmol/L; BUN/Creatinine Ratio 11.42; Blood Urea Nitrogen 8 mg/dL (7-17); Calcium 8.7 mg/dL (8.4-10.2); Carbon Dioxide 36 mmol/L (22-30); Chloride 97.5 mmol/L (98-107); Glucose 172 mg/dL (65-100); Potassium 3.2 mmol/L (3.6-5.0); Sodium 145 mmol/L (137-145)
--- NOTE | 2016-02-24 15:07 | Progress Note ---
Assessment and Plan Assessment and plan: Acute hypoxic respiratory failure: * Treatment with supplemental oxygen, nebulizer breathing treatment * Treat underlying cause diastolic heart failure Acute on chronic diastolic heart failure: * Treat with IV Lasix, 2-D echo showed preserved ejection fraction and diastolic dysfunction * Follow cardiology recommendation Accelerated hypertension: * IV when necessary hydralazine * Continue current meds and a chest dictations as needed Hypokalemia: * Replace and continue to monitor Atrial fibrillation: * Continue home medication and anticoagulation Type 2 diabetes mellitus: * Continue ADA diet and sliding scale Sirs with suspected UTI with sepsis poorly treated with Macrobid: * Follow urine culture, treat with IV Levaquin, patient allergic to penicillin DVT prophylaxis: * SCDs and Pradaxa Physical debility * PTOT eval History Interval history: Patient seen and examined. Medical records and medication list reviewed. No acute event overnight noted by the RN. Patient continued to complain of difficulty breathing with minimal exertion. Patient is tolerating diet. Discussed plan of care at bedside with patient. Hospitalist Physical - Physical exam Narrative exam: GEN: WDWN, morbidly obesity BMI 55, NAD, sleepy but easily aroused, ORIENTATED 1 HEENT: NCAT, PERRL, EOMI, OP CLEAR NECK: SUPPLE, NO THYROMEGALY, + JVD, NO LAD CVS: Irregularly irregular, NORMAL S1S2 LUNGS/CHEST: Bibasilar crackles, NORMAL CHEST EXPANSION B, GOOD AIR ENTRY B ABD: SOFT, NTND, GBS, NO REBOUND OR GUARDING EXT/SKIN: leg SIGNIFICANT EDEMA MSK: Spontaneous movement X 4 EXTREMITIES NEURO: CN 2-12 GROSSLY INTACT, doesn't follow commands PSY: CALM - Constitutional Vitals: Temp Pulse Resp BP Pulse Ox 98.1 F 88 20 149/69 96 02/24/16 07:51 02/24/16 12:55 02/24/16 11:02 02/24/16 07:51 02/24/16 10:57 Results - Labs CBC & Chem 7: 02/22/16 14:52 02/24/16 10:45 Labs: Laboratory Last Values WBC 4.3 K/mm3 (4.5-11.0) L 02/22/16 14:52 RBC 4.17 M/mm3 (3.65-5.03) 02/22/16 14:52 Hgb 12.5 gm/dl (10.1-14.3) 02/22/16 14:52 Hct 39.4 % (30.3-42.9) 02/22/16 14:52 MCV 94 fl (79-97) 02/22/16 14:52 MCH 30 pg (28-32) 02/22/16 14:52 MCHC 32 % (30-34) 02/22/16 14:52 RDW 17.2 % (13.2-15.2) H 02/22/16 14:52 Plt Count 111 K/mm3 (140-440) L 02/22/16 14:52 Lymph % (Auto) 21.1 % (13.4-35.0) 02/22/16 14:52 [place] % (Auto) 10.9 % (0.0-7.3) H 02/22/16 14:52 Eos % (Auto) 1.2 % (0.0-4.3) 02/22/16 14:52 Baso % (Auto) 0.4 % (0.0-1.8) 02/22/16 14:52 Lymph # 0.9 K/mm3 (1.2-5.4) L 02/22/16 14:52 [place] # 0.5 K/mm3 (0.0-0.8) 02/22/16 14:52 Eos # 0.1 K/mm3 (0.0-0.4) 02/22/16 14:52 Baso # 0.0 K/mm3 (0.0-0.1) 02/22/16 14:52 Seg Neutrophils % 66.4 % (40.0-70.0) 02/22/16 14:52 Seg Neutrophils # 2.9 K/mm3 (1.8-7.7) 02/22/16 14:52 PT 16.0 Sec. (12.2-14.9) H 02/22/16 14:52 INR 1.29 (0.87-1.13) H 02/22/16 14:52 APTT 29.7 Sec. (24.2-36.6) 02/22/16 14:52 D-Dimer 445.96 ng/mlDDU (0-234) H 02/22/16 15:00 POC ABG pH 7.391 (7.35-7.45) 02/22/16 22:01 POC ABG pCO2 58.1 (35-45) H 02/22/16 22:01 POC ABG pO2 39 (80-105) L 02/22/16 22:01 POC ABG HCO3 35.3 02/22/16 22:01 POC ABG Total CO2 37 02/22/16 22:01 POC ABG O2 Sat 72 02/22/16 22:01 POC ABG Base Excess 10 02/22/16 22:01 FiO2 28 % 02/22/16 22:01 Sodium 145 mmol/L (137-145) 02/24/16 10:45 Potassium 3.2 mmol/L (3.6-5.0) L 02/24/16 10:45 Chloride 97.5 mmol/L (98-107) L 02/24/16 10:45 Carbon Dioxide 36 mmol/L (22-30) H 02/24/16 10:45 Anion Gap 15 mmol/L 02/24/16 10:45 BUN 8 mg/dL (7-17) 02/24/16 10:45 Creatinine 0.7 mg/dL (0.7-1.2) 02/24/16 10:45 Estimated GFR > 60 ml/min 02/24/16 10:45 BUN/Creatinine Ratio 11.42 % 02/24/16 10:45 Glucose 172 mg/dL (65-100) H 02/24/16 10:45 POC Glucose 170 (70-105) H 02/24/16 11:43 Lactic Acid 1.6 mmol/L (0.7-2.0) 02/22/16 14:52 Calcium 8.7 mg/dL (8.4-10.2) 02/24/16 10:45 Total Bilirubin 1.2 mg/dL (0.1-1.2) 02/22/16 14:52 AST 15 units/L (5-40) 02/22/16 14:52 ALT 7 units/L (7-56) 02/22/16 14:52 Alkaline Phosphatase 112 units/L (35-129) 02/22/16 14:52 Total Creatine Kinase 39 units/L (30-135) 02/24/16 00:24 CK-MB (CK-2) 1.0 ng/mL (0.0-4.0) 02/24/16 00:24 CK-MB (CK-2) Rel Index 2.5 (0-4) 02/24/16 00:24 Troponin T < 0.010 ng/mL (0.00-0.029) 02/23/16 12:49 Total Protein 6.8 g/dL (6.3-8.2) 02/22/16 14:52 Albumin 3.8 g/dL (3.9-5) L 02/22/16 14:52 Albumin/Globulin Ratio 1.3 % 02/22/16 14:52 TSH 0.117 mlU/mL (0.270-4.200) L 02/24/16 05:21 Urine Color [place] (Yellow) 02/22/16 20:00 Urine Turbidity Clear (Clear) 02/22/16 20:00 Urine pH 5.0 (5.0-7.0) 02/22/16 20:00 Ur Specific [place] 1.030 (1.003-1.030) 02/22/16 20:00 Urine Protein 100 mg/dl mg/dL (Negative) 02/22/16 20:00 Urine Glucose (UA) Neg mg/dL (Negative) 02/22/16 20:00 Urine Ketones Tr mg/dL (Negative) 02/22/16 20:00 Urine Blood Neg (Negative) 02/22/16 20:00 Urine Nitrite Neg (Negative) 02/22/16 20:00 Urine Bilirubin Sm (Negative) 02/22/16 20:00 Urine Ictotest Positive (Negative) 02/22/16 20:00 Urine Urobilinogen 4.0 mg/dL (<2.0) 02/22/16 20:00 Ur Leukocyte Esterase Neg (Negative) 02/22/16 20:00 Urine WBC (Auto) 1.0 /HPF (0.0-6.0) 02/22/16 20:00 Urine RBC (Auto) < 1.0 /HPF (0.0-6.0) 02/22/16 20:00 U Epithel Cells (Auto) 8.0 /HPF (0-13.0) 02/22/16 20:00 Urine Mucus 1+ /HPF 02/22/16 20:00
[2016-02-24] MEDS ORDERED: K-DUR PO ONE (16:00)
[2016-02-24] MEDS: LANOXIN PO SCH (17:18)
[2016-02-25] MEDS: LASIX IV SCH ×2 (05:27→17:46)
[2016-02-25] MEDS: SPIRIVA IH SCH ×2 (07:47→10:00)
[2016-02-25] MEDS: NOVOLOG SUB-Q SCH ×4 (08:01→22:54)
[2016-02-25 08:10] LABS: Anion Gap 15 mmol/L; BUN/Creatinine Ratio 11.42; Blood Urea Nitrogen 8 mg/dL (7-17); Calcium 8.5 mg/dL (8.4-10.2); Carbon Dioxide 35 mmol/L (22-30); Chloride 93.8 mmol/L (98-107); Glucose 134 mg/dL (65-100); Potassium 3.5 mmol/L (3.6-5.0); Sodium 140 mmol/L (137-145)
[2016-02-25] MEDS ORDERED: K-DUR PO SCH (10:00)
[2016-02-25] MEDS: PROTONIX PO SCH (10:18)
[2016-02-25] MEDS: APRESOLINE PO SCH ×2 (10:18→21:39)
[2016-02-25] MEDS: HALFPRIN EC PO SCH (10:18)
[2016-02-25] MEDS: COREG PO SCH (10:18)
[2016-02-25] MEDS: ZESTRIL PO SCH (10:18)
[2016-02-25] MEDS: GLUCOPHAGE XR PO SCH (10:18)
[2016-02-25] MEDS: PRADAXA PO SCH ×2 (10:18→21:39)
[2016-02-25] MEDS: LEVAQUIN 500MG/100ML 100 ML IV SCH (10:19)
--- NOTE | 2016-02-25 11:25 | Consultation ---
History of Present Illness Consult date: 02/25/16 Consult reason: atrial fibrillation, congestive heart failure History of present illness: 70 year old obese -[place] female presented with shortness of breath and altered mental status. She is unable to give any coherent history but has been noted to have hallucinations and has not been able to sleep for the past couple of days. Past History Past Medical History: atrial fib, COPD, diabetes, hypertension, other (as HPI) Past Surgical History: No surgical history, Other ([facility]) Social history: other (has been answered) Family history: no significant family history Medications and Allergies Allergies Allergy/AdvReac Type Severity Reaction Status Date / Time Penicillins Allergy Unknown Verified 12/31/15 15:50 Home Medications Medication Instructions Recorded Confirmed Last Taken Type Aspirin [Adult Low Dose Aspirin EC] 81 mg PO DAILY 12/31/15 02/22/16 02/18/16 History Carvedilol [Coreg] 6.25 mg PO DAILY 12/31/15 02/22/16 02/18/16 History Dabigatran [Pradaxa] 150 mg PO BID 12/31/15 02/22/16 Unknown History Furosemide [Lasix] 20 mg PO QDAY 12/31/15 02/22/16 02/18/16 History ISOSORBIDE MONOnitrate [Imdur ER] 30 mg PO DAILY 12/31/15 02/22/16 02/18/16 History Lisinopril [Zestril] 20 mg PO QDAY 12/31/15 02/22/16 02/18/16 History Dabigatran [Pradaxa] 150 mg PO BID 02/18/16 02/22/16 02/18/16 History Digoxin [Lanoxin] 125 mcg PO QDAY 02/18/16 02/22/16 02/18/16 History Lisinopril [Zestril] 20 mg PO QDAY 02/18/16 02/22/16 Unknown History Metformin HCl [Fortamet ER] 1,000 mg PO QDAY 02/18/16 02/22/16 02/18/16 History Nitrofurantoin [place]/M-Cryst 100 mg PO Q12HR #14 capsule 02/18/16 02/22/16 Unknown Rx [Macrobid CAP] Pantoprazole [Protonix] 40 mg PO QDAY 02/18/16 02/22/16 02/18/16 History Tiotropium [Spiriva] 18 mcg IH QDAY 02/18/16 02/22/16 02/18/16 History hydrALAZINE [Apresoline] 25 mg PO BID 02/18/16 02/22/16 02/18/16 History oxyCODONE /ACETAMINOPHEN [Percocet 1 tab PO Q6HR PRN #14 tablet 02/18/16 Unknown Rx 5/325] Active Meds: Active Medications Acetaminophen (Tylenol) 650 mg PO Q6H PRN PRN Reason: Non Cardiac Pain or Temp>100.5 Aspirin (Halfprin Ec) 81 mg PO DAILY [facility] Last Admin: 02/25/16 10:18 Dose: 81 mg Carvedilol (Coreg) 6.25 mg PO DAILY [facility] Last Admin: 02/25/16 10:18 Dose: 6.25 mg Dabigatran (Pradaxa) 150 mg PO BID [facility] Last Admin: 02/25/16 10:18 Dose: 150 mg Dextrose (D50w (25gm)) 50 ml IV PRN PRN PRN Reason: Hypoglycemia Digoxin (Lanoxin) 0.125 mg PO 1700 [facility] Last Admin: 02/24/16 17:18 Dose: 0.125 mg Furosemide (Lasix) 20 mg IV 0600,1800 [facility] Last Admin: 02/25/16 05:27 Dose: 20 mg Hydralazine HCl (Apresoline) 25 mg PO BID [facility] Last Admin: 02/25/16 10:18 Dose: 25 mg Hydralazine HCl (Apresoline) 10 mg IV Q4H PRN PRN Reason: Blood Pressure Levofloxacin/Dextrose (Levaquin 500mg/100ml) 100 mls @ 100 mls/hr IV Q24HR [facility] PRN Reason: Protocol Last Admin: 02/25/16 10:19 Dose: 100 mls/hr Insulin Aspart (Novolog) 0 units SUB-Q ACHS [facility] PRN Reason: Protocol Last Admin: 02/25/16 08:01 Dose: Not Given Lisinopril (Zestril) 20 mg PO QDAY [facility] Last Admin: 02/25/16 10:18 Dose: 20 mg Metformin HCl (Glucophage Xr) 1,000 mg PO QDAY [facility] Last Admin: 02/25/16 10:18 Dose: 1,000 mg Ondansetron HCl (Zofran) 4 mg IV Q4H PRN PRN Reason: Nausea And Vomiting Oxycodone/Acetaminophen (Percocet 5/325) 1 tab PO Q6H PRN PRN Reason: Pain Pantoprazole Sodium (Protonix) 40 mg PO QDAY [facility] Last Admin: 02/25/16 10:18 Dose: 40 mg Potassium Chloride (K-Dur) 20 meq PO QDAY [facility] Last Admin: 02/25/16 10:18 Dose: 20 meq Tiotropium [place] (Spiriva) 1 puff IH QDAY [facility] Last Admin: 02/25/16 10:00 Dose: Not Given Review of Systems ROS unobtainable: due to mental status Physical Examination Vital Signs Temp Pulse Resp BP Pulse Ox 98.7 F 102 H 16 137/79 96 02/22/16 13:11 02/22/16 13:11 02/22/16 13:11 02/22/16 13:11 02/22/16 13:11 General appearance: obese HEENT: Positive: PERRL, Normocephaly Neck: Positive: neck supple, trachea midline. Negative: JVD/HJR Cardiac: Positive: Regular Rate, Irregularly Regular, irregularly irregular, S1/ S2, S3, PMI, Laterally Displaced Lungs: Positive: clear to auscultation, No Wheeze, Rales, Rhonchi Neuro: Positive: Grossly Intact, No Lateralizing Findings Extremities: Present: +1 Edema, +2 Edema Results 02/22/16 14:52 02/25/16 07:00 Comprehensive Metabolic Panel 02/24/16 02/25/16 Range/Units 10:45 07:00 Sodium 145 140 (137-145) mmol/L Potassium 3.2 L 3.5 L (3.6-5.0) mmol/L Chloride 97.5 L 93.8 L (98-107) mmol/L Carbon Dioxide 36 H 35 H (22-30) mmol/L BUN 8 8 (7-17) mg/dL Creatinine 0.7 0.7 (0.7-1.2) mg/dL Glucose 172 H 134 H (65-100) mg/dL Calcium 8.7 8.5 (8.4-10.2) mg/dL EKG interpretations - Telemetry EKG Rhythm: Atrial Fibrillation - EKG Supraventricular dysrhythmia: atrial fibrillation Repolarization changes or abnormalities: nonspecific abnormality, ST segment, and/or T wave Assessment and Plan 1. Atrial fibrillation a controlled ventricular response. 2. Altered mental status 3. Type 2 diabetes mellitus 4. Essential hypertension 5. Urinary tract infection 6. Obesity Plan. Check TSH level check Echocardiogram. Anticoagulation. Neuro evaluation for altered mental status
--- NOTE | 2016-02-25 15:55 | Progress Note ---
Assessment and Plan Assessment and plan: Acute hypoxic respiratory failure: * Treatment with supplemental oxygen, nebulizer breathing treatment * Treat underlying cause diastolic heart failure * Patient is improving Acute on chronic diastolic heart failure: * cont to Treat with IV Lasix, 2-D echo showed preserved ejection fraction and diastolic dysfunction * Follow cardiology recommendation Accelerated hypertension: * IV when necessary hydralazine * Continue current meds and adjust medication as needed Hypokalemia: * Replace and continue to monitor Atrial fibrillation: * Continue home medication and anticoagulation Type 2 diabetes mellitus: * Continue ADA diet and sliding scale Sirs with suspected UTI with sepsis poorly treated with Macrobid: * Follow urine culture, treat with IV Levaquin, patient allergic to penicillin Reported hallucination * We'll get psych eval DVT prophylaxis: * SCDs and Pradaxa Physical debility * Patient is wheelchair bound at home, we will get PTOT eval History Interval history: Patient seen and examined. Medical records and medication list reviewed. No acute event overnight noted by the RN. Patient continued to complain of difficulty breathing with minimal exertion but states that symptom has improved than before. Patient is tolerating diet. Family complained of altered mental status and hallucinations on admission, patient currently denies any, CT scan of the head on patient was unremarkable. Discussed plan of care at bedside with patient. Hospitalist Physical - Physical exam Narrative exam: GEN: WDWN, morbidly obesity BMI 55, NAD, sleepy but easily aroused, ORIENTATED 1 HEENT: NCAT, PERRL, EOMI, OP CLEAR NECK: SUPPLE, NO THYROMEGALY, + JVD, NO LAD CVS: Irregularly irregular, NORMAL S1S2 LUNGS/CHEST: Bibasilar crackles, NORMAL CHEST EXPANSION B, GOOD AIR ENTRY B ABD: SOFT, NTND, GBS, NO REBOUND OR GUARDING EXT/SKIN: leg SIGNIFICANT EDEMA MSK: Spontaneous movement X 4 EXTREMITIES NEURO: CN 2-12 GROSSLY INTACT, doesn't follow commands PSY: CALM - Constitutional Vitals: Temp Pulse Resp BP Pulse Ox 98.5 F 80 20 138/74 92 02/25/16 11:10 02/25/16 11:10 02/25/16 11:10 02/25/16 11:10 02/25/16 11:10 General appearance: Present: obese Results - Labs CBC & Chem 7: 02/22/16 14:52 02/25/16 07:00 Labs: Laboratory Last Values WBC 4.3 K/mm3 (4.5-11.0) L 02/22/16 14:52 RBC 4.17 M/mm3 (3.65-5.03) 02/22/16 14:52 Hgb 12.5 gm/dl (10.1-14.3) 02/22/16 14:52 Hct 39.4 % (30.3-42.9) 02/22/16 14:52 MCV 94 fl (79-97) 02/22/16 14:52 MCH 30 pg (28-32) 02/22/16 14:52 MCHC 32 % (30-34) 02/22/16 14:52 RDW 17.2 % (13.2-15.2) H 02/22/16 14:52 Plt Count 111 K/mm3 (140-440) L 02/22/16 14:52 Lymph % (Auto) 21.1 % (13.4-35.0) 02/22/16 14:52 [place] % (Auto) 10.9 % (0.0-7.3) H 02/22/16 14:52 Eos % (Auto) 1.2 % (0.0-4.3) 02/22/16 14:52 Baso % (Auto) 0.4 % (0.0-1.8) 02/22/16 14:52 Lymph # 0.9 K/mm3 (1.2-5.4) L 02/22/16 14:52 [place] # 0.5 K/mm3 (0.0-0.8) 02/22/16 14:52 Eos # 0.1 K/mm3 (0.0-0.4) 02/22/16 14:52 Baso # 0.0 K/mm3 (0.0-0.1) 02/22/16 14:52 Seg Neutrophils % 66.4 % (40.0-70.0) 02/22/16 14:52 Seg Neutrophils # 2.9 K/mm3 (1.8-7.7) 02/22/16 14:52 PT 16.0 Sec. (12.2-14.9) H 02/22/16 14:52 INR 1.29 (0.87-1.13) H 02/22/16 14:52 APTT 29.7 Sec. (24.2-36.6) 02/22/16 14:52 D-Dimer 445.96 ng/mlDDU (0-234) H 02/22/16 15:00 POC ABG pH 7.391 (7.35-7.45) 02/22/16 22:01 POC ABG pCO2 58.1 (35-45) H 02/22/16 22:01 POC ABG pO2 39 (80-105) L 02/22/16 22:01 POC ABG HCO3 35.3 02/22/16 22:01 POC ABG Total CO2 37 02/22/16 22:01 POC ABG O2 Sat 72 02/22/16 22:01 POC ABG Base Excess 10 02/22/16 22:01 FiO2 28 % 02/22/16 22:01 Sodium 140 mmol/L (137-145) 02/25/16 07:00 Potassium 3.5 mmol/L (3.6-5.0) L 02/25/16 07:00 Chloride 93.8 mmol/L (98-107) L 02/25/16 07:00 Carbon Dioxide 35 mmol/L (22-30) H 02/25/16 07:00 Anion Gap 15 mmol/L 02/25/16 07:00 BUN 8 mg/dL (7-17) 02/25/16 07:00 Creatinine 0.7 mg/dL (0.7-1.2) 02/25/16 07:00 Estimated GFR > 60 ml/min 02/25/16 07:00 BUN/Creatinine Ratio 11.42 % 02/25/16 07:00 Glucose 134 mg/dL (65-100) H 02/25/16 07:00 POC Glucose 150 (70-105) H 02/24/16 21:09 Lactic Acid 1.6 mmol/L (0.7-2.0) 02/22/16 14:52 Calcium 8.5 mg/dL (8.4-10.2) 02/25/16 07:00 Total Bilirubin 1.2 mg/dL (0.1-1.2) 02/22/16 14:52 AST 15 units/L (5-40) 02/22/16 14:52 ALT 7 units/L (7-56) 02/22/16 14:52 Alkaline Phosphatase 112 units/L (35-129) 02/22/16 14:52 Total Creatine Kinase 39 units/L (30-135) 02/24/16 00:24 CK-MB (CK-2) 1.0 ng/mL (0.0-4.0) 02/24/16 00:24 CK-MB (CK-2) Rel Index 2.5 (0-4) 02/24/16 00:24 Troponin T < 0.010 ng/mL (0.00-0.029) 02/23/16 12:49 Total Protein 6.8 g/dL (6.3-8.2) 02/22/16 14:52 Albumin 3.8 g/dL (3.9-5) L 02/22/16 14:52 Albumin/Globulin Ratio 1.3 % 02/22/16 14:52 TSH 0.117 mlU/mL (0.270-4.200) L 02/24/16 05:21 Urine Color [place] (Yellow) 02/22/16 20:00 Urine Turbidity Clear (Clear) 02/22/16 20:00 Urine pH 5.0 (5.0-7.0) 02/22/16 20:00 Ur Specific [place] 1.030 (1.003-1.030) 02/22/16 20:00 Urine Protein 100 mg/dl mg/dL (Negative) 02/22/16 20:00 Urine Glucose (UA) Neg mg/dL (Negative) 02/22/16 20:00 Urine Ketones Tr mg/dL (Negative) 02/22/16 20:00 Urine Blood Neg (Negative) 02/22/16 20:00 Urine Nitrite Neg (Negative) 02/22/16 20:00 Urine Bilirubin Sm (Negative) 02/22/16 20:00 Urine Ictotest Positive (Negative) 02/22/16 20:00 Urine Urobilinogen 4.0 mg/dL (<2.0) 02/22/16 20:00 Ur Leukocyte Esterase Neg (Negative) 02/22/16 20:00 Urine WBC (Auto) 1.0 /HPF (0.0-6.0) 02/22/16 20:00 Urine RBC (Auto) < 1.0 /HPF (0.0-6.0) 02/22/16 20:00 U Epithel Cells (Auto) 8.0 /HPF (0-13.0) 02/22/16 20:00 Urine Mucus 1+ /HPF 02/22/16 20:00
[2016-02-25] MEDS: LANOXIN PO SCH (17:43)
[2016-02-26] MEDS: LASIX IV SCH ×2 (06:32→18:06)
[2016-02-26 06:41] LABS: Anion Gap 13 mmol/L; BUN/Creatinine Ratio 13.75; Blood Urea Nitrogen 11 mg/dL (7-17); Calcium 8.7 mg/dL (8.4-10.2); Carbon Dioxide 38 mmol/L (22-30); Chloride 98.1 mmol/L (98-107); Glucose 137 mg/dL (65-100); Potassium 3.4 mmol/L (3.6-5.0); Sodium 146 mmol/L (137-145)
[2016-02-26] MEDS: APRESOLINE IV PRN ×2 (08:40→21:08)
[2016-02-26] MEDS: NOVOLOG SUB-Q SCH ×2 (08:41→18:00)
[2016-02-26] MEDS: SPIRIVA IH SCH (09:59)
--- NOTE | 2016-02-26 10:25 | Progress Note ---
Assessment and Plan 1. Atrial fibrillation a controlled ventricular response. 2. Altered mental status 3. Type 2 diabetes mellitus 4. Essential hypertension 5. Urinary tract infection 6. Obesity Plan. Echocardiogram shows preserved LV systolic function. Continus anticoagulation. Evaluation for altered mental status pending Subjective Date of service: 02/26/16 Interval history: No cardiac symptoms. She is still having hallucinations. Objective Vital Signs Temp Pulse Pulse Pulse Pulse Resp BP 02/26/16 08:40 78 217/109 02/26/16 08:00 98.4 F 88 20 02/26/16 04:20 98.7 F 86 22 02/26/16 01:42 98.4 F 81 22 02/26/16 00:00 85 02/25/16 21:40 98.6 F 83 18 02/25/16 21:39 83 176/79 02/25/16 21:00 02/25/16 16:45 97.7 F 76 20 02/25/16 11:10 98.5 F 80 20 BP Pulse Ox 02/26/16 08:40 02/26/16 08:00 217/109 97 02/26/16 04:20 199/88 95 02/26/16 01:42 193/89 97 02/26/16 00:00 02/25/16 21:40 176/79 95 02/25/16 21:39 02/25/16 21:00 96 02/25/16 16:45 146/76 93 02/25/16 11:10 138/74 92 - Physical Examination General: Appears Well, Other (Obese) HEENT: Positive: PERRL, Normocephaly Neck: Positive: neck supple, trachea midline. Negative: JVD/HJR Cardiac: Positive: irregularly irregular, S1/S2, S3, Laterally Displaced Lungs: Positive: clear to auscultation, No Wheeze, Rales, Rhonchi Neuro: Positive: Grossly Intact, No Lateralizing Findings Abdomen: Positive: Soft, Active Bowel Sounds Extremities: Present: +1 Edema - Labs and Meds Comprehensive Metabolic Panel 02/26/16 Range/Units 05:12 Sodium 146 H (137-145) mmol/L Potassium 3.4 L (3.6-5.0) mmol/L Chloride 98.1 (98-107) mmol/L Carbon Dioxide 38 H (22-30) mmol/L BUN 11 (7-17) mg/dL Creatinine 0.8 (0.7-1.2) mg/dL Glucose 137 H (65-100) mg/dL Calcium 8.7 (8.4-10.2) mg/dL - Imaging and Cardiology EKG: image reviewed Repolarization changes or abnormalities: nonspecific abnormality, ST segment, and/or T wave
[2016-02-26] MEDS: GLUCOPHAGE XR PO SCH (10:34)
[2016-02-26] MEDS: HALFPRIN EC PO SCH (10:34)
[2016-02-26] MEDS: LEVAQUIN PO SCH (10:35)
[2016-02-26] MEDS: PRADAXA PO SCH ×2 (10:35→21:07)
[2016-02-26] MEDS: APRESOLINE PO SCH ×2 (10:35→21:07)
[2016-02-26] MEDS: ZESTRIL PO SCH (10:35)
[2016-02-26] MEDS: PROTONIX PO SCH (10:36)
[2016-02-26] MEDS: COREG PO SCH (10:36)
[2016-02-26] MEDS: K-DUR PO SCH ×2 (10:42→18:06)
[2016-02-26] MEDS: LANOXIN PO SCH (18:06)
[2016-02-26] MEDS: PERCOCET 5/325 PO PRN (21:01)
--- NOTE | 2016-02-27 | Progress Note ---
Assessment and Plan Assessment and plan: Acute hypoxic respiratory failure: * Treatment with supplemental oxygen, nebulizer breathing treatment * Patient is improving * Likely d/c home Acute on chronic diastolic heart failure: * cont to Treat with IV Lasix, 2-D echo showed preserved ejection fraction and diastolic dysfunction * Follow cardiology recommendation Accelerated hypertension: * Hydralazine IV prn * Continue current meds and adjust medication as needed Hypokalemia: * Resolved after replacement. Atrial fibrillation: * Continue home medication and anticoagulation Type 2 diabetes mellitus: * Continue ADA diet and sliding scale Sirs with suspected UTI with sepsis poorly treated with Macrobid: Bacteremia. Full code status Likely d/c home in few days. History Interval history: Less shortness of breath, No chest pain Hospitalist Physical - Physical exam Narrative exam: Gen: Not in acute distress HEENT: Normocephalic, atraumatic Neck : supple, no JVD Lungs: Clear to auscultation, no crackles, no wheeze S1 and S2 regular, no murmurs no gallop Abdomen: soft, non-tender, non-distended, normal bowel sounds Ext: Bilateral lower ext edema, no clubbing or cyanosis, Skin: no rash Neuro: Awake, alert ,oriented x 3 - Constitutional Vitals: Temp Pulse Resp BP Pulse Ox 99.0 F 89 24 176/90 96 02/26/16 20:57 02/26/16 23:23 02/26/16 20:57 02/26/16 21:08 02/26/16 21:15 General appearance: Present: obese Results - Labs CBC & Chem 7: 02/22/16 14:52 02/27/16 06:05 Labs: Laboratory Last Values WBC 4.3 K/mm3 (4.5-11.0) L 02/22/16 14:52 RBC 4.17 M/mm3 (3.65-5.03) 02/22/16 14:52 Hgb 12.5 gm/dl (10.1-14.3) 02/22/16 14:52 Hct 39.4 % (30.3-42.9) 02/22/16 14:52 MCV 94 fl (79-97) 02/22/16 14:52 MCH 30 pg (28-32) 02/22/16 14:52 MCHC 32 % (30-34) 02/22/16 14:52 RDW 17.2 % (13.2-15.2) H 02/22/16 14:52 Plt Count 111 K/mm3 (140-440) L 02/22/16 14:52 Lymph % (Auto) 21.1 % (13.4-35.0) 02/22/16 14:52 [place] % (Auto) 10.9 % (0.0-7.3) H 02/22/16 14:52 Eos % (Auto) 1.2 % (0.0-4.3) 02/22/16 14:52 Baso % (Auto) 0.4 % (0.0-1.8) 02/22/16 14:52 Lymph # 0.9 K/mm3 (1.2-5.4) L 02/22/16 14:52 [place] # 0.5 K/mm3 (0.0-0.8) 02/22/16 14:52 Eos # 0.1 K/mm3 (0.0-0.4) 02/22/16 14:52 Baso # 0.0 K/mm3 (0.0-0.1) 02/22/16 14:52 Seg Neutrophils % 66.4 % (40.0-70.0) 02/22/16 14:52 Seg Neutrophils # 2.9 K/mm3 (1.8-7.7) 02/22/16 14:52 PT 16.0 Sec. (12.2-14.9) H 02/22/16 14:52 INR 1.29 (0.87-1.13) H 02/22/16 14:52 APTT 29.7 Sec. (24.2-36.6) 02/22/16 14:52 D-Dimer 445.96 ng/mlDDU (0-234) H 02/22/16 15:00 POC ABG pH 7.391 (7.35-7.45) 02/22/16 22:01 POC ABG pCO2 58.1 (35-45) H 02/22/16 22:01 POC ABG pO2 39 (80-105) L 02/22/16 22:01 POC ABG HCO3 35.3 02/22/16 22:01 POC ABG Total CO2 37 02/22/16 22:01 POC ABG O2 Sat 72 02/22/16 22:01 POC ABG Base Excess 10 02/22/16 22:01 FiO2 28 % 02/22/16 22:01 Sodium 146 mmol/L (137-145) H 02/26/16 05:12 Potassium 3.4 mmol/L (3.6-5.0) L 02/26/16 05:12 Chloride 98.1 mmol/L (98-107) 02/26/16 05:12 Carbon Dioxide 38 mmol/L (22-30) H 02/26/16 05:12 Anion Gap 13 mmol/L 02/26/16 05:12 BUN 11 mg/dL (7-17) 02/26/16 05:12 Creatinine 0.8 mg/dL (0.7-1.2) 02/26/16 05:12 Estimated GFR > 60 ml/min 02/26/16 05:12 BUN/Creatinine Ratio 13.75 % 02/26/16 05:12 Glucose 137 mg/dL (65-100) H 02/26/16 05:12 POC Glucose 189 (70-105) H 02/26/16 23:43 Lactic Acid 1.6 mmol/L (0.7-2.0) 02/22/16 14:52 Calcium 8.7 mg/dL (8.4-10.2) 02/26/16 05:12 Total Bilirubin 1.2 mg/dL (0.1-1.2) 02/22/16 14:52 AST 15 units/L (5-40) 02/22/16 14:52 ALT 7 units/L (7-56) 02/22/16 14:52 Alkaline Phosphatase 112 units/L (35-129) 02/22/16 14:52 Total Creatine Kinase 39 units/L (30-135) 02/24/16 00:24 CK-MB (CK-2) 1.0 ng/mL (0.0-4.0) 02/24/16 00:24 CK-MB (CK-2) Rel Index 2.5 (0-4) 02/24/16 00:24 Troponin T < 0.010 ng/mL (0.00-0.029) 02/23/16 12:49 Total Protein 6.8 g/dL (6.3-8.2) 02/22/16 14:52 Albumin 3.8 g/dL (3.9-5) L 02/22/16 14:52 Albumin/Globulin Ratio 1.3 % 02/22/16 14:52 TSH 0.117 mlU/mL (0.270-4.200) L 02/24/16 05:21 Urine Color [place] (Yellow) 02/22/16 20:00 Urine Turbidity Clear (Clear) 02/22/16 20:00 Urine pH 5.0 (5.0-7.0) 02/22/16 20:00 Ur Specific [place] 1.030 (1.003-1.030) 02/22/16 20:00 Urine Protein 100 mg/dl mg/dL (Negative) 02/22/16 20:00 Urine Glucose (UA) Neg mg/dL (Negative) 02/22/16 20:00 Urine Ketones Tr mg/dL (Negative) 02/22/16 20:00 Urine Blood Neg (Negative) 02/22/16 20:00 Urine Nitrite Neg (Negative) 02/22/16 20:00 Urine Bilirubin Sm (Negative) 02/22/16 20:00 Urine Ictotest Positive (Negative) 02/22/16 20:00 Urine Urobilinogen 4.0 mg/dL (<2.0) 02/22/16 20:00 Ur Leukocyte Esterase Neg (Negative) 02/22/16 20:00 Urine WBC (Auto) 1.0 /HPF (0.0-6.0) 02/22/16 20:00 Urine RBC (Auto) < 1.0 /HPF (0.0-6.0) 02/22/16 20:00 U Epithel Cells (Auto) 8.0 /HPF (0-13.0) 02/22/16 20:00 Urine Mucus 1+ /HPF 02/22/16 20:00
[2016-02-27] MEDS: NOVOLOG SUB-Q SCH ×5 (00:12→22:13)
[2016-02-27] MEDS: LASIX IV SCH ×2 (06:34→17:38)
[2016-02-27 07:02] LABS: Anion Gap 12 mmol/L; BUN/Creatinine Ratio 14.28; Blood Urea Nitrogen 10 mg/dL (7-17); Calcium 8.7 mg/dL (8.4-10.2); Carbon Dioxide 36 mmol/L (22-30); Chloride 97.4 mmol/L (98-107); Glucose 116 mg/dL (65-100); Potassium 3.5 mmol/L (3.6-5.0); Sodium 142 mmol/L (137-145)
[2016-02-27] MEDS: SPIRIVA IH SCH (08:59)
[2016-02-27] MEDS: HALFPRIN EC PO SCH (10:50)
[2016-02-27] MEDS: K-DUR PO SCH ×3 (10:50→22:11)
[2016-02-27] MEDS: LEVAQUIN PO SCH (10:50)
[2016-02-27] MEDS: PRADAXA PO SCH ×2 (10:51→22:13)
[2016-02-27] MEDS: APRESOLINE PO SCH ×2 (10:51→22:10)
[2016-02-27] MEDS: COREG PO SCH (10:51)
[2016-02-27] MEDS: ZESTRIL PO SCH (10:51)
[2016-02-27] MEDS: PROTONIX PO SCH (10:51)
[2016-02-27] MEDS: GLUCOPHAGE XR PO SCH (11:00)
--- NOTE | 2016-02-27 13:23 | Progress Note ---
Assessment and Plan - Patient Problems (1) CHF (congestive heart failure) Current Visit: Yes Status: Acute Plan to address problem: Patient presented with mild fluid overload, setting of well-preserved left ventricle systolic function. Continue medical management, further cardiac evaluation and therapy will depend on clinical course. Subjective Date of service: 02/27/16 Interval history: She was admitted with altered mental status and shortness of breath. Chest x- ray in the emergency room demonstrated cardiomegaly, with mild interstitial edema, worse on the right lung field. The EKG was benign, and echocardiogram shows well-preserved left ventricle systolic function with ejection fraction 55- 60%. Objective Vital Signs Temp Pulse Pulse Pulse Pulse Pulse Pulse 02/27/16 12:25 98.2 F 98 H 02/27/16 09:10 98.4 F 90 02/27/16 09:02 96 H 02/27/16 08:58 95 H 02/27/16 04:25 98.3 F 84 02/27/16 00:52 98.3 F 92 H 02/26/16 23:23 89 02/26/16 22:00 90 02/26/16 21:15 02/26/16 21:08 103 H 02/26/16 20:57 99.0 F 103 H 02/26/16 15:23 98.9 F 77 Resp Resp BP BP BP Pulse Ox 02/27/16 12:25 18 158/76 96 02/27/16 09:10 16 206/94 95 02/27/16 09:02 20 02/27/16 08:58 20 94 02/27/16 04:25 22 153/81 99 02/27/16 00:52 20 140/77 93 02/26/16 23:23 02/26/16 22:00 92 02/26/16 21:15 96 02/26/16 21:08 176/90 02/26/16 20:57 24 176/90 89 02/26/16 15:23 20 144/84 94 - Physical Examination General: Appears Well, Other (Obese) HEENT: Positive: PERRL, Normocephaly Neck: Positive: neck supple, trachea midline. Negative: JVD/HJR Cardiac: Positive: Reg Rate and Rhythm Lungs: Positive: Decreased Breath Sounds Neuro: Positive: Grossly Intact, No Lateralizing Findings Abdomen: Positive: Soft, Active Bowel Sounds Skin: Positive: Clear Extremities: Present: +1 Edema - Labs and Meds Comprehensive Metabolic Panel 02/27/16 Range/Units 06:05 Sodium 142 (137-145) mmol/L Potassium 3.5 L (3.6-5.0) mmol/L Chloride 97.4 L (98-107) mmol/L Carbon Dioxide 36 H (22-30) mmol/L BUN 10 (7-17) mg/dL Creatinine 0.7 (0.7-1.2) mg/dL Glucose 116 H (65-100) mg/dL Calcium 8.7 (8.4-10.2) mg/dL - Imaging and Cardiology EKG: image reviewed Repolarization changes or abnormalities: nonspecific abnormality, ST segment, and/or T wave
[2016-02-27] MEDS: LANOXIN PO SCH (17:38)
[2016-02-27] MEDS: ALUM-MAG HYDROX-SIMETH 200-200-20MG/5ML PO PRN (17:38)
[2016-02-27] MEDS: PERCOCET 5/325 PO PRN (22:16)
--- NOTE | 2016-02-27 23:10 | Progress Note ---
Assessment and Plan Assessment and plan: Acute hypoxic respiratory failure: * Treatment with supplemental oxygen, nebulizer breathing treatment * Patient is improving * Likely d/c home tomorrow Acute on chronic diastolic heart failure: * cont to Treat with IV Lasix, 2-D echo showed preserved ejection fraction and diastolic dysfunction * Follow cardiology recommendation Accelerated hypertension: * Hydralazine IV prn * Continue current meds and adjust medication as needed Hypokalemia: * Resolved after replacement. Atrial fibrillation: * Continue home medication and anticoagulation Type 2 diabetes mellitus: * Continue ADA diet and sliding scale Sirs with suspected UTI with sepsis poorly treated with Macrobid: Bacteremia with coagulase neg staph Full code status Likely d/c home tomorrow. History Interval history: Less shortness of breath, No chest pain Hospitalist Physical - Physical exam Narrative exam: Gen: Not in acute distress, morbid obese HEENT: Normocephalic, atraumatic, On Oxygen by NC Neck : supple, no JVD Lungs: Clear to auscultation, no crackles, no wheeze S1 and S2 regular, no murmurs no gallop Abdomen: soft, non-tender, non-distended, normal bowel sounds Ext: Bilateral lower ext edema, no clubbing or cyanosis, Skin: no rash Neuro: Awake, alert ,oriented x 3 - Constitutional Vitals: Temp Pulse Resp BP Pulse Ox 98.8 F 80 20 134/55 96 02/27/16 21:11 02/27/16 21:11 02/27/16 22:00 02/27/16 21:11 02/27/16 21:51 General appearance: Present: obese Results - Labs CBC & Chem 7: 02/22/16 14:52 02/27/16 06:05 Labs: Laboratory Last Values WBC 4.3 K/mm3 (4.5-11.0) L 02/22/16 14:52 RBC 4.17 M/mm3 (3.65-5.03) 02/22/16 14:52 Hgb 12.5 gm/dl (10.1-14.3) 02/22/16 14:52 Hct 39.4 % (30.3-42.9) 02/22/16 14:52 MCV 94 fl (79-97) 02/22/16 14:52 MCH 30 pg (28-32) 02/22/16 14:52 MCHC 32 % (30-34) 02/22/16 14:52 RDW 17.2 % (13.2-15.2) H 02/22/16 14:52 Plt Count 111 K/mm3 (140-440) L 02/22/16 14:52 Lymph % (Auto) 21.1 % (13.4-35.0) 02/22/16 14:52 [place] % (Auto) 10.9 % (0.0-7.3) H 02/22/16 14:52 Eos % (Auto) 1.2 % (0.0-4.3) 02/22/16 14:52 Baso % (Auto) 0.4 % (0.0-1.8) 02/22/16 14:52 Lymph # 0.9 K/mm3 (1.2-5.4) L 02/22/16 14:52 [place] # 0.5 K/mm3 (0.0-0.8) 02/22/16 14:52 Eos # 0.1 K/mm3 (0.0-0.4) 02/22/16 14:52 Baso # 0.0 K/mm3 (0.0-0.1) 02/22/16 14:52 Seg Neutrophils % 66.4 % (40.0-70.0) 02/22/16 14:52 Seg Neutrophils # 2.9 K/mm3 (1.8-7.7) 02/22/16 14:52 PT 16.0 Sec. (12.2-14.9) H 02/22/16 14:52 INR 1.29 (0.87-1.13) H 02/22/16 14:52 APTT 29.7 Sec. (24.2-36.6) 02/22/16 14:52 D-Dimer 445.96 ng/mlDDU (0-234) H 02/22/16 15:00 POC ABG pH 7.391 (7.35-7.45) 02/22/16 22:01 POC ABG pCO2 58.1 (35-45) H 02/22/16 22:01 POC ABG pO2 39 (80-105) L 02/22/16 22:01 POC ABG HCO3 35.3 02/22/16 22:01 POC ABG Total CO2 37 02/22/16 22:01 POC ABG O2 Sat 72 02/22/16 22:01 POC ABG Base Excess 10 02/22/16 22:01 FiO2 28 % 02/22/16 22:01 Sodium 142 mmol/L (137-145) 02/27/16 06:05 Potassium 3.5 mmol/L (3.6-5.0) L 02/27/16 06:05 Chloride 97.4 mmol/L (98-107) L 02/27/16 06:05 Carbon Dioxide 36 mmol/L (22-30) H 02/27/16 06:05 Anion Gap 12 mmol/L 02/27/16 06:05 BUN 10 mg/dL (7-17) 02/27/16 06:05 Creatinine 0.7 mg/dL (0.7-1.2) 02/27/16 06:05 Estimated GFR > 60 ml/min 02/27/16 06:05 BUN/Creatinine Ratio 14.28 % 02/27/16 06:05 Glucose 116 mg/dL (65-100) H 02/27/16 06:05 POC Glucose 113 (70-105) H 02/27/16 15:45 Lactic Acid 1.6 mmol/L (0.7-2.0) 02/22/16 14:52 Calcium 8.7 mg/dL (8.4-10.2) 02/27/16 06:05 Total Bilirubin 1.2 mg/dL (0.1-1.2) 02/22/16 14:52 AST 15 units/L (5-40) 02/22/16 14:52 ALT 7 units/L (7-56) 02/22/16 14:52 Alkaline Phosphatase 112 units/L (35-129) 02/22/16 14:52 Total Creatine Kinase 39 units/L (30-135) 02/24/16 00:24 CK-MB (CK-2) 1.0 ng/mL (0.0-4.0) 02/24/16 00:24 CK-MB (CK-2) Rel Index 2.5 (0-4) 02/24/16 00:24 Troponin T < 0.010 ng/mL (0.00-0.029) 02/23/16 12:49 Total Protein 6.8 g/dL (6.3-8.2) 02/22/16 14:52 Albumin 3.8 g/dL (3.9-5) L 02/22/16 14:52 Albumin/Globulin Ratio 1.3 % 02/22/16 14:52 TSH 0.117 mlU/mL (0.270-4.200) L 02/24/16 05:21 Urine Color [place] (Yellow) 02/22/16 20:00 Urine Turbidity Clear (Clear) 02/22/16 20:00 Urine pH 5.0 (5.0-7.0) 02/22/16 20:00 Ur Specific [place] 1.030 (1.003-1.030) 02/22/16 20:00 Urine Protein 100 mg/dl mg/dL (Negative) 02/22/16 20:00 Urine Glucose (UA) Neg mg/dL (Negative) 02/22/16 20:00 Urine Ketones Tr mg/dL (Negative) 02/22/16 20:00 Urine Blood Neg (Negative) 02/22/16 20:00 Urine Nitrite Neg (Negative) 02/22/16 20:00 Urine Bilirubin Sm (Negative) 02/22/16 20:00 Urine Ictotest Positive (Negative) 02/22/16 20:00 Urine Urobilinogen 4.0 mg/dL (<2.0) 02/22/16 20:00 Ur Leukocyte Esterase Neg (Negative) 02/22/16 20:00 Urine WBC (Auto) 1.0 /HPF (0.0-6.0) 02/22/16 20:00 Urine RBC (Auto) < 1.0 /HPF (0.0-6.0) 02/22/16 20:00 U Epithel Cells (Auto) 8.0 /HPF (0-13.0) 02/22/16 20:00 Urine Mucus 1+ /HPF 02/22/16 20:00
[2016-02-28] MEDS: LASIX IV SCH ×2 (06:05→18:50)
[2016-02-28] MEDS: SPIRIVA IH SCH ×2 (07:09→11:01)
[2016-02-28] MEDS: NOVOLOG SUB-Q SCH ×4 (08:10→22:23)
[2016-02-28] MEDS: APRESOLINE PO SCH ×2 (10:00→21:11)
[2016-02-28] MEDS: COREG PO SCH (10:01)
[2016-02-28] MEDS: LEVAQUIN PO SCH (10:02)
[2016-02-28] MEDS: HALFPRIN EC PO SCH (10:02)
[2016-02-28] MEDS: GLUCOPHAGE XR PO SCH (10:02)
[2016-02-28] MEDS: PRADAXA PO SCH ×2 (10:02→21:12)
[2016-02-28] MEDS: ZESTRIL PO SCH (10:03)
[2016-02-28] MEDS: PROTONIX PO SCH (10:03)
--- NOTE | 2016-02-28 10:12 | Progress Note ---
Assessment and Plan 1. Atrial fibrillation a controlled ventricular response. On pradaxa 2. Acute on chronic diastolic heart failure Normal LVEF Restrictive physiology RV dysfunction with severe pulmonary hypertension 3. Altered mental status 4. Type 2 diabetes mellitus 5. Essential hypertension 6. Urinary tract infection 7. Obesity Recommendations: Continue current therapy Switch lasix to 40 mg po bid upon discharge No further cardiac recommendations Will sign off Subjective Date of service: 02/28/16 Principal diagnosis: HFEPEF Interval history: Patient is a poor historian. She denies chest pain or shortness of breath Objective Vital Signs Temp Pulse Pulse Pulse Pulse Resp Resp 02/28/16 09:20 80 02/28/16 07:13 81 16 02/28/16 07:09 73 16 02/28/16 04:30 97.7 F 82 22 02/28/16 00:25 98.5 F 84 20 02/28/16 00:00 90 02/27/16 22:00 20 02/27/16 21:51 02/27/16 21:11 98.8 F 80 20 02/27/16 17:07 98.2 F 94 H 20 02/27/16 12:25 98.2 F 98 H 18 02/27/16 12:00 83 BP Pulse Ox 02/28/16 09:20 02/28/16 07:13 02/28/16 07:09 97 02/28/16 04:30 128/59 98 02/28/16 00:25 138/66 96 02/28/16 00:00 02/27/16 22:00 02/27/16 21:51 96 02/27/16 21:11 134/55 95 02/27/16 17:07 205/93 96 02/27/16 12:25 158/76 96 02/27/16 12:00 - Physical Examination General: Appears Well, Other (Obese) HEENT: Positive: PERRL, Normocephaly Neck: Positive: neck supple, trachea midline. Negative: JVD/HJR Cardiac: Positive: irregularly irregular Lungs: Positive: Decreased Breath Sounds Neuro: Positive: Grossly Intact, No Lateralizing Findings Abdomen: Positive: Soft, Active Bowel Sounds Skin: Positive: Clear Extremities: Present: +1 Edema - Imaging and Cardiology EKG: image reviewed Repolarization changes or abnormalities: nonspecific abnormality, ST segment, and/or T wave
--- NOTE | 2016-02-28 11:59 | Discharge Summary ---
Providers - Providers Date of Admission: 02/23/16 01:53 Date of discharge: 02/28/16 Attending physician: APOLLO NAVARRO 02/25/16 15:48 Consult to Physician [CONS] Routine Consulting Provider: NINA HYMAN Reason For Exam: Hallucinations Place consult to:: on-call psych Notified:: Jazz BACA Phone number called:: [phone] Was contact made?: Yes If yes, spoke with:: Samantha Time called:: 16:22 02/27/16 14:56 Physical Therapy Evaluation and Treat [CONS] Routine Comment: Reason For Exam: Immobility 02/24/16 15:08 Physical Therapy Evaluation and Treat [CONS] Routine Comment: Reason For Exam: placement Primary care physician: [employer] Hospitalization Condition: Fair Disposition: STILL A PATIENT - Discharge Diagnoses (1) UTI (urinary tract infection) Status: Acute Qualifiers: Urinary tract infection type: acute cystitis Hematuria presence: without hematuria Qualified Code(s): N30.00 - Acute cystitis without hematuria (2) Acute on chronic diastolic (congestive) heart failure Status: Acute (3) Sepsis Status: Acute (4) Atrial fibrillation Status: Acute (5) Acute and chronic respiratory failure Status: Acute (6) COPD (chronic obstructive pulmonary disease) Status: Chronic Core Measure Documentation - Palliative Care Palliative Care/ Comfort Measures: Not Applicable - Core Measures Any of the following diagnoses?: heart failure - Heart Failure Discharge Requirements DWIGHT/ARB for LVSD if EF <40%: Yes Beta polly at discharge: Yes Exam - Constitutional Vitals: Temp Pulse Resp BP Pulse Ox 97.8 F 95 H 20 129/59 97 02/28/16 11:23 02/28/16 11:23 02/28/16 11:23 02/28/16 11:23 02/28/16 11:23 Plan Activity: advance as tolerated Diet: low fat, low cholesterol, low salt Additional Instructions: 1.Follow up with PCP in 1 week. 2.Follow up with Dr. Elliott in 1 week. 3.Continue home Oxygen Follow up with: PRIMARY CARE, [Primary Care Provider] - 3-5 Days Prescriptions: Furosemide [Lasix TAB] 40 mg PO BID #60 tablet Levofloxacin [Levaquin TAB] 500 mg PO Q24HR #5 tablet Potassium Chloride [Klor-Con] 20 meq PO DAILY #30 packet
[2016-02-28] MEDS: LANOXIN PO SCH (18:49)
[2016-02-28] MEDS: ALUM-MAG HYDROX-SIMETH 200-200-20MG/5ML PO PRN (22:23)
[2016-02-29] MEDS: LASIX IV SCH (06:38)
[2016-02-29 07:49] VITALS: BP 137/68
[2016-02-29] MEDS: NOVOLOG SUB-Q SCH (08:51)
[2016-02-29] MEDS: HALFPRIN EC PO SCH (10:04)
[2016-02-29] MEDS: GLUCOPHAGE XR PO SCH (10:05)
[2016-02-29] MEDS: ZESTRIL PO SCH (10:05)
[2016-02-29] MEDS: PRADAXA PO SCH (10:05)
[2016-02-29] MEDS: LEVAQUIN PO SCH (10:05)
[2016-02-29] MEDS: PROTONIX PO SCH (10:05)
[2016-02-29] MEDS: COREG PO SCH (10:06)
[2016-02-29] MEDS: APRESOLINE PO SCH (10:07)
[2016-02-29] MEDS: SPIRIVA IH SCH (11:08)
== END 2016-02-29 11:00 | disposition home or self-care (01) | DRG 871 ==
LOC: ED 12:52 → 4A 02-23 01:53
PROVIDERS: ADMIT Internal Medicine; ATTEND Internal Medicine
PROC: 4A033R1 Measurement of Arterial Saturation, Peripheral, Percutaneous Approach (ICD-10-PCS; principal; 2016-02-22)
DX: A41.9 Sepsis, unspecified organism (principal); I50.33 Acute on chronic diastolic (congestive) heart failure; J96.21 Acute and chronic respiratory failure with hypoxia; Z68.42 Body mass index [BMI] 45.0-49.9, adult; R44.3 Hallucinations, unspecified; N30.00 Acute cystitis without hematuria; I10 Essential (primary) hypertension; E87.6 Hypokalemia; I48.91 Unspecified atrial fibrillation; E11.9 Type 2 diabetes mellitus without complications; E66.9 Obesity, unspecified; J44.9 Chronic obstructive pulmonary disease, unspecified; I11.0 Hypertensive heart disease with heart failure; R54 Age-related physical debility; Z85.9 Personal history of malignant neoplasm, unspecified; Z98.890 Other specified postprocedural states; Z87.891 Personal history of nicotine dependence; Z79.82 Long term (current) use of aspirin; Z79.899 Other long term (current) drug therapy; Z88.0 Allergy status to penicillin
CPT/HCPCS: 36415; 51702; 70450; 71020; 71275; 80048; 80053; 81001; 82140; 82550; 82553; 82803; 82962; 84443; 84484; 85025; 85379; 85610; 85730; 87040; 87086; 93005; 93010; 93306; 94760; 96374; G8978-GP; G8979-GP; J0360; J1815; J1940; J1956; J2405; Q9967

== ENCOUNTER 2016-04-15 18:39 | Emergency (ER) | payer MEDICARE ==
--- NOTE | 2016-04-15 20:52 | Emergency Department Report ---
HPI - General Chief Complaint: Extremity Problem,Nontraumatic Time Seen by Provider: 04/15/16 20:18 - HPI HPI: This is a 70-year-old Afro[place] female presents to the emergency department by EMS from her rehabilitation nursing facility with complaint of pain to the right upper arm with an abscess or some type of wound. Patient says [facility] and the records show there was CHF versus emphysema. There is no mention an abscess or wound from those records. She says that the doctor at the nursing facility saw her this morning and suggested she be sent in for further evaluation. She says it is swelling and has been draining. She denies any fever, nausea, vomiting, chest pain, shortness of breath. She did not receive anything for symptoms prior to presentation. ED Past Medical Hx - Past Medical History Hx Hypertension: Yes Hx Heart Attack/AMI: No Hx Congestive Heart Failure: Yes Hx Diabetes: Yes Hx Deep Vein Thrombosis: No Hx Pulmonary Embolism: No Hx Liver Disease: No Hx Sickle Cell Disease: No Hx Asthma: No Hx COPD: Yes Hx Tuberculosis: No Hx HIV: No - Surgical History Hx Coronary Stent: No Hx Open Heart Surgery: No Hx Pacemaker: No Hx Internal Defibrillator: No Hx Cholecystectomy: No Hx Appendectomy: No Hx Breast Surgery: No Additional Surgical History: Patient states she has had abdominal surgery for a cancer. - Social History Smoking Status: Never Smoker Substance Use Type: None - Medications Home Medications: Home Medications Medication Instructions Recorded Confirmed Last Taken Type Aspirin [Adult Low Dose Aspirin EC] 81 mg PO DAILY 12/31/15 04/16/16 02/18/16 History Dabigatran [Pradaxa] 150 mg PO BID 12/31/15 04/01/16 Unknown History ISOSORBIDE MONOnitrate [Imdur ER] 30 mg PO DAILY 12/31/15 04/01/16 02/18/16 History Digoxin [Lanoxin] 125 mcg PO QDAY 02/18/16 04/01/16 02/18/16 History Metformin HCl [Fortamet ER] 1,000 mg PO BID 02/18/16 04/16/16 02/18/16 History Pantoprazole [Protonix TAB] 40 mg PO QDAY 02/18/16 04/16/16 02/18/16 History Tiotropium [Spiriva] 18 mcg IH QDAY 02/18/16 04/16/16 02/18/16 History hydrALAZINE [Apresoline TAB] 25 mg PO BID 02/18/16 04/16/16 02/18/16 History Furosemide [Lasix TAB] 40 mg PO BID #60 tablet 02/28/16 04/01/16 Unknown Rx Potassium Chloride [Klor-Con] 20 meq PO DAILY #30 packet 02/28/16 04/16/16 Unknown Rx Carvedilol [Coreg] 12.5 mg PO BID #60 tablet 04/04/16 Unknown Rx Insulin NPH/Regular [NovoLIN 70/30] 30 unit SUB-Q BIDDIAB #1 vial 04/04/16 Unknown Rx Lisinopril [Zestril TAB] 40 mg PO QDAY #30 tablet 04/04/16 04/16/16 Unknown Rx Prednisone [predniSONE 5 mg (6-Day 5 mg PO .TAPER #1 tab.ds.pk 04/04/16 Unknown Rx Pack, 21 Tabs)] oxyCODONE /ACETAMINOPHEN [Percocet 1 tab PO Q6HR PRN #14 tablet 04/04/16 Unknown Rx 5/325 mg] HYDROcodone/APAP 5-325 [Elbe 1 each PO Q6HR PRN #10 tablet 04/16/16 Unknown Rx 5/325] Sulfamethoxazole/Trimethoprim 1 each PO BID #20 tablet 04/16/16 Unknown Rx [Bactrim DS TAB] ED Review of Systems ROS: Stated complaint: ABSCESS NEEDS TO BE LANCED Other details as noted in HPI Comment: All other systems reviewed and negative Constitutional: denies: chills, fever Eyes: denies: eye pain, eye discharge, vision change ENT: denies: ear pain, throat pain Respiratory: denies: cough, shortness of breath, wheezing Cardiovascular: denies: chest pain, palpitations Gastrointestinal: denies: abdominal pain, nausea, diarrhea Musculoskeletal: denies: back pain, joint swelling, arthralgia Skin: lesions. denies: pruritus Neurological: denies: headache, weakness, paresthesias Physical Exam - Physical Exam Vital Signs: Vital Signs 04/15/16 04/15/16 04/15/16 20:06 20:16 20:18 Temperature 98.7 F 98.8 F Pulse Rate 78 70 Respiratory 20 14 16 Rate Blood Pressure 110/65 Blood Pressure 125/75 [Left] O2 Sat by Pulse 92 97 Oximetry 04/15/16 04/15/16 20:21 20:23 Temperature Pulse Rate 68 Respiratory 13 14 Rate Blood Pressure Blood Pressure [Left] O2 Sat by Pulse 100 100 Oximetry Physical Exam: GENERAL: The patient is well-developed well-nourished. HEENT: Normocephalic. Atraumatic. Extraocular motions are intact. Patient has moist mucous membranes. Pupils equal reactive to light bilaterally. NECK: Supple. Trachea is midline. CHEST/LUNGS: Clear to auscultation. There is no respiratory distress noted. HEART/CARDIOVASCULAR: Regular. There is no tachycardia. There is no gallop rub or murmur. ABDOMEN: Abdomen is soft, nontender. Patient has normal bowel sounds. Obese habitus. SKIN: There is swelling to the right upper arm around the bicep that is erythematous and inflamed consistent with cellulitis. There is also an area in the inferior portion of this cellulitis that is fluctuant and warm and consistent with an abscess. Over this area there is an opening with a ulcerated wound that appears consistent with an abscess that is already opened and drained. NEURO: The patient is awake, alert, and oriented. The patient is cooperative. The patient has no focal neurologic deficits. The patient has normal speech. MUSCULOSKELETAL: There is no tenderness or deformity. There is no limitation range of motion. There is no evidence of acute injury. Radial pulses +2 over 4 bilaterally. Cap refill less than 2 seconds. ED Course Vital Signs 04/15/16 04/15/16 04/15/16 20:06 20:16 20:18 Temperature 98.7 F 98.8 F Pulse Rate 78 70 Respiratory 20 14 16 Rate Blood Pressure 110/65 Blood Pressure 125/75 [Left] O2 Sat by Pulse 92 97 Oximetry 04/15/16 04/15/16 20:21 20:23 Temperature Pulse Rate 68 Respiratory 13 14 Rate Blood Pressure Blood Pressure [Left] O2 Sat by Pulse 100 100 Oximetry ED Medical Decision Making - Lab Data Result diagrams: 04/15/16 22:06 04/15/16 22:14 - Radiology Data Radiology results: report reviewed Soft tissue right upper extremity ultrasound shows cellulitis with a 17 mm area of fluid collection consistent with an abscess. - Medical Decision Making 70-year-old female was sent in from rehabilitation facility with concern for cellulitis versus abscess of the right upper extremity. The area had already been draining for the past few days. She presents with a outline made by a marker showing where the redness had been. Her current area of cellulitis is within that area of the marker. There is what appears to be an abscess in the middle of this cellulitis as well and on top of the abscess is a opening where it had been previously draining. Patient has some discomfort with palpation of the cellulitis and abscess. She was given IV fluid, pain medication and a dose of vancomycin. I took a look with the ultrasound myself and there did not appear to be any large areas of abscess for incision and drainage. Patient was sent for an official ultrasound which showed only a 17 mm fluid collection and I believe it is underneath where the patient currently has an opening and has been drained. Patient's labs are unremarkable and do not show any signs of leukocytosis. Patient's vital signs are stable including being afebrile. Since the patient's infection is within the previously marked area, she does not have a fever, does not have a leukocytosis, and already has an area of opening towards the abscess for drainage, I believe the patient is safe for discharge home at this time. She will go home on a 7-10 day course of antibiotics and will be given something for pain. However does not improve or the patient develops a fever, she will need to return to the emergency department for probable admission and IV antibiotics. She understands and agrees to plan. - Differential Diagnosis cellulitis, abscess, superficial thrombophlebitis, boil Critical Care Time: No Critical care attestation.: If time is entered above; I have spent that time in minutes in the direct care of this critically ill patient, excluding procedure time. ED Disposition Clinical Impression: Cellulitis of arm, right, Abscess of right arm Disposition: DISCHARGED TO HOME OR SELFCARE Is pt being admited?: No Condition: Stable Instructions: Cellulitis (ED), Abscess (ED) Additional Instructions: Please follow-up with the physician at the rehabilitation facility or your primary care physician. You should use a warm compress over the area of abscess to help continue it draining infection. Take the antibiotics as prescribed. Return to the emergency department with any worsening of the infection, or development of fever or any acute distress. You've been prescribed a medication that is sedating. Therefore this medication cannot be mixed with alcohol, or taken prior to driving, working, or being responsible for children. Prescriptions: HYDROcodone/APAP 5-325 [Elbe 5/325] 1 each PO Q6HR PRN #10 tablet PRN Reason: Pain Sulfamethoxazole/Trimethoprim [Bactrim DS TAB] 1 each PO BID #20 tablet Referrals: PRIMARY CARE, [Primary Care Provider] - 3-5 Days Time of Disposition: 04:56
[2016-04-15] MEDS ORDERED: VANCOMYCIN/NS 1 GM/250 ML 1 GM/250 ML BAG IV ONE (21:08)
[2016-04-15 22:35] LABS: Basophils % (Auto) 0.4 % (0.0-1.8); Eosinophils % (Auto) 2.8 % (0.0-4.3); Hematocrit 38.3 % (30.3-42.9); Hemoglobin 12.1 gm/dl (10.1-14.3); Mean Corpuscular HGB Conc 32 % (30-34); Mean Corpuscular Hemoglobin 29 pg (28-32); Mean Corpuscular Volume 92 fl (79-97); Platelet Count 137 K/mm3 (140-440); Red Blood Count 4.17 M/mm3 (3.65-5.03); White Blood Count 4.7 K/mm3 (4.5-11.0)
[2016-04-15] MEDS ORDERED: MORPHINE ONE (22:39)
[2016-04-15 22:46] LABS: BUN/Creatinine Ratio 24.16; Chloride 95.2 mmol/L (98-107); Potassium 4.5 mmol/L (3.6-5.0)
[2016-04-15] MEDS ORDERED: ZOFRAN IV ONE (22:50)
[2016-04-15] MEDS ORDERED: ZOFRAN ONE (22:51)
[2016-04-15] MEDS ORDERED: D50W (25GM) IV ONE (22:51)
[2016-04-15] MEDS ORDERED: MORPHINE IV ONE (22:52)
--- NOTE | 2016-04-16 04:07 | Ultrasound Report ---
FINAL REPORT PROCEDURE: US EXTREMITY NONVASCULAR RT TECHNIQUE: Real-time sonography in multiple planes of the soft tissues of the right elbow was performed with image documentation. CPT 33048 HISTORY: RUE swelling and pain, mass vs abscess vs cellulit COMPARISON: No prior studies are available for comparison. FINDINGS: There is generalized soft tissue swelling and edema. There is a subcutaneous fluid collection measuring 17 millimeters suggesting abscess. IMPRESSION: There is generalized soft tissue swelling and edema. There is a subcutaneous fluid collection measuring 17 millimeters suggesting abscess.
[2016-04-16 05:34] VITALS: BP 118/51
== END 2016-04-16 06:05 | disposition home or self-care (01) ==
LOC: ED 18:39
DX: L03.113 Cellulitis of right upper limb (principal); I10 Essential (primary) hypertension; E11.9 Type 2 diabetes mellitus without complications; I50.9 Heart failure, unspecified; J44.9 Chronic obstructive pulmonary disease, unspecified
CPT/HCPCS: 36415; 76881; 80048; 85025; 87040; 96365; 96375; 99284; J2270; J2405; J3370